=== PATIENT | female | born 1985 | race Caucasian/White ===

== ENCOUNTER 2023-07-20 09:56 | Outpatient (REF) | payer MEDICAID, SELFPAY ==
[2023-07-20 12:07] LABS: Estimated Average Glucose 126 mg/dL
[2023-07-20 12:24] LABS: Alanine Aminotransferase 22 U/L (0-31); Albumin Level 4.1 g/dL (3.5-5.0); Alkaline Phosphatase 77 U/L (39-117); Anion Gap 11 (12-20); Aspartate Amino Transferase 20 U/L (5-31); Bilirubin Total 0.2 mg/dL (0.0-1.0); Blood Urea Nitrogen 12 mg/dL (9-16); Calcium 9.1 mg/dL (8.4-10.2); Carbon Dioxide 26 mmol/L (22-29); Chloride 108 mmol/L (96-108); Cholesterol 176 mg/dL (<200); Estimated Glomerular Filt Rate > 60; Glucose Random 104 mg/dL (60-115); HDL Cholesterol 41 mg/dL (>40); LDL Cholesterol Calculated 116 mg/dL (<100); Potassium 4.1 mmol/L (3.3-5.1); Sodium 141 mmol/L (135-145); Triglycerides 96 mg/dL (<150)
[2023-07-20 12:34] LABS: Syphilis Screen Nonreactive (Nonreactive)
[2023-07-20 12:43] LABS: HBS Num1 9.47 mIU/mL (0-7.99); HBc Num1 0.14 S/CO (0.00-0.79); HBsAGNum1 0.35 S/CO (0.00-0.99); HIV AB/AG Nonreactive (Nonreactive); HIV Num 1 0.04 S/CO (0.00-0.99); Hepatitis A Antibody IgG Nonreactive (Nonreactive); Hepatitis B Core Antibody Nonreactive (Nonreactive); Hepatitis B Surface Antigen Negative (Negative); ~HepC Num1 0.07 S/CO (0.00-0.79); ~Hepatitis A Antibody IgG 0.58 S/CO (0.00-0.99); ~Hepatitis C Antibody Nonreactive (Nonreactive)
[2023-07-20 12:47] LABS: TSH reflex Free T4 1.86 uIU/mL (0.32-4.0)
[2023-07-20 12:50] LABS: Reflex LDLD? No
[2023-07-20 14:16] LABS: HBS Num2 10.21 mIU/mL (0-7.99); ~Hepatitis B Surface Antibody GRAYZONE (Nonreactive)
[2023-07-20 14:25] LABS: CT PCR NOT DETECTED (Not Detect.); NG PCR NOT DETECTED (Not Detect.)
== END 2023-07-20 09:57 | disposition home or self-care (01) ==
LOC: HO.HHCL 09:56
PROVIDERS: Visit Provider Family Medicine
DX: Z00.00 Encounter for general adult medical examination without abnormal findings (principal); R73.03 Prediabetes; E66.09 Other obesity due to excess calories
CPT/HCPCS: 0353U; 36415; 80053; 80061; 83036; 84443; 86704; 86706; 86708; 86780; 86803; 87340; 87389

== ENCOUNTER 2023-07-25 13:12 | Outpatient (REF) | payer MEDICAID, SELFPAY ==
--- NOTE | ~2023-07-25 | MM_ITS ---
EXAMINATION: MM SCREENING DIGITAL BREAST TOMOSYNTHESIS, BILATERAL CLINICAL INFORMATION: Screening. Asymptomatic. The patient is status post left breast surgery for benign disease. COMPARISON: Mammography: This is a baseline mammogram. TECHNIQUE: Digital breast tomosynthesis is performed in both the craniocaudal and mediolateral oblique views along with computer-aided detection (CAD). Synthesized 2D images are generated from the tomosynthesis. FINDINGS: The breasts are almost entirely fatty (ACR BI-RADS breast composition Category a). There are no significant masses, abnormal calcifications, or other abnormalities. MM/MM tomosynthesis screening BI IMPRESSION: No mammographic evidence of malignancy. ASSESSMENT: BI-RADS BI-RADS 1 - Negative RECOMMENDATION: Routine annual mammography screening. 1 year F/U This examination should not preclude the clinical evaluation of a suspicious palpable abnormality. This patient's information was entered into a reminder system with a target due date for their next mammogram.
== END 2023-07-25 13:13 | disposition home or self-care (01) ==
LOC: HO.MAMMO 13:12
PROVIDERS: PCP Family Medicine; Visit Provider Family Medicine
DX: Z12.31 Encounter for screening mammogram for malignant neoplasm of breast (principal)
CPT/HCPCS: 77063; 77067

== ENCOUNTER → 2023-07-25 14:00 | Outpatient (BNV) | payer MEDICAID, SELFPAY | PROVIDERS: PCP Family Medicine; Visit Provider Radiology Diagnostic Radiology | DX: Z12.31 Encounter for screening mammogram for malignant neoplasm of breast (principal) | CPT/HCPCS: 77063; 77067 ==

== ENCOUNTER 2024-02-01 13:30 | Outpatient (AMB) | payer MEDICAID, SELFPAY ==
--- NOTE | 2024-02-01 13:35 | MHC.OFFVIS ---
Vital Signs 02/01/24 13:40 Height 5 ft 1 in Weight 169 lb 8 oz BMI 32.0 Intake Visit Reasons: cyst of back Intake Note: This patient presents for cyst on the back. Pt c/o; reports black dot that looks like a pimple and she tried poping it but nothing came out, reports no antibiotics course. Rn Long Term Care Required: Yes Rn Long Term Care Language: Workers Compensation Analyst Services: Rn Long Term Care Present Rn Long Term Care Name: Linda Information Interpreted: non-clinical & clinical Accompanied by: Other Relationship Allergies No Known Allergies [No Known Allergies*] Allergy (Unverified 02/01/24 13:42) Medication List - Last Reconciled 02/01/24 by Brando Henderson MD No Known Home Meds HPI HPI cyst of back: Details: 38-year-old female referred for a cyst on her back. She says that she has had this lump on her back for about a year now. She denies any drainage or swelling but she says this is uncomfortable and she wants this removed. [facility] Medical History (Updated 02/01/24 @ 13:56 by Brando Henderson MD) Epidermal inclusion cyst Surgical History No pertinent past surgical history Social History Alcohol intake: never Patient Tobacco Use Status: Never used Tobacco Review of Systems Const Denies chills and Denies fever(s) Card Denies chest pain, Denies dyspnea and Denies dyspnea on exertion Resp Denies cough, Denies dyspnea and Denies dyspnea on exertion GI Denies hematochezia and Denies change in bowel habits Denies hematuria Musc Denies back pain and Denies limited range of motion Neuro Denies focal weakness and Denies convulsions Psych Denies depression and Denies mood swings Physical Exam Vital Signs: BMI result Body Mass Index 32.0 Const General: comfortable and no acute distress Orientation/consciousness: patient oriented x3 Neck Neck: Yes no lymphadenopathy Resp Auscultation: clear to auscultation bilaterally Cardio Rhythm: regular rhythm GI Palpation (GI): Soft to palpation, nontender and no guarding Back/Spine/Pelvis Other: On the upper back is note of a well-defined cystic induration consistent with an epidermal inclusion cyst, about 1.3 cm in diameter, not inflamed Neuro General: patient oriented x3 Assessment & Plan Assessment & Plan (1) Epidermal inclusion cyst: Code(s): L72.0 - Epidermal cyst Category: Medical Plan: She wants this removed. I explained the technique of excision under local anesthesia. I reviewed the risks including but not limited to bleeding and infections, as well as the benefits and alternatives. She wants to proceed This will be done on her next visit in the office. Coding Level of Care Code New Pt Level 3 (47763) Diagnoses Epidermal inclusion cyst L72.0
[2024-02-01 13:40] VITALS: BMI 32.0
== END 2024-02-01 13:57 | disposition home or self-care (01) ==
PROVIDERS: PCP Family Medicine; Visit Provider Surgery
DX: L72.0 Epidermal cyst (principal)
CPT/HCPCS: 99203

== ENCOUNTER → 2024-02-01 13:30 | Outpatient (BNVA) | payer MEDICAID, SELFPAY | PROVIDERS: PCP Family Medicine; Visit Provider Surgery | DX: L72.0 Epidermal cyst (principal) | CPT/HCPCS: 99202 ==

== ENCOUNTER 2024-02-15 12:48 | Outpatient (AMB) | payer MEDICAID, SELFPAY ==
[2024-02-15 12:55] VITALS: BMI 32.0
--- NOTE | 2024-02-15 12:55 | MHC.OFFVIS ---
Vital Signs 02/15/24 12:55 Height 5 ft 1 in Weight 169 lb 8.003 oz BMI 32.0 Intake Visit Reasons: EXC cyst of back Intake Note: Office procedure: excision of back cyst. Clinical Nurse Leader Required: Yes Clinical Nurse Leader Language: Piecer Up Services: Clinical Nurse Leader Present (Bharti) Information Interpreted: non-clinical & clinical Accompanied by: Spouse Allergies No Known Allergies [No Known Allergies*] Allergy (Unverified 02/15/24 12:56) HPI HPI EXC cyst of back: Details: She is here for excision of a cyst from the back. [facility] Medical History Epidermal inclusion cyst Surgical History No pertinent past surgical history Social History Alcohol intake: never Patient Tobacco Use Status: Never used Tobacco Physical Exam Vital Signs: BMI result Body Mass Index 32.0 Office Procedures Excision Details: She was in prone position. The area of the cyst on the mid back was prepped and draped. Lidocaine 1% was used for local anesthesia. I made an elliptical incision on the skin overlying this cyst with a blade 15. This carried down through the full-thickness of the skin and subcutaneous fat to excise the entire cyst with the capsule intact. This is measured about 1.3 cm in diameter. I closed the incision with full-thickness nylon 3-0 simple interrupted sutures. Dressings were applied. The procedure was completed. She tolerated procedure well. There was no complication. There was minimal blood loss. 30528-ckilm/arms/legs 1.1-2cm Procedure code (CPT) selection complete Assessment & Plan Assessment & Plan (1) Epidermal inclusion cyst: Code(s): L72.0 - Epidermal cyst Category: Medical Plan: She was given wound care instructions. I will see her in the office in about 2 weeks for removal sutures. Coding Level of Care Code Procedure Only Diagnoses Epidermal inclusion cyst L72.0 CPT Codes Trunk/Arms/Legs - CPT: 06845-kxhmp/arms/legs 1.1-2cm ([id number])
== END 2024-02-15 13:18 | disposition home or self-care (01) ==
PROVIDERS: PCP Family Medicine; Visit Provider Surgery
DX: L72.0 Epidermal cyst (principal)
CPT/HCPCS: 11402

== ENCOUNTER 2024-02-15 12:48 | Outpatient (REF) | payer MEDICAID, SELFPAY | END 2024-02-15 12:49 | disposition home or self-care (01) | LOC: HO.LNP 12:48 | PROVIDERS: PCP Family Medicine; Visit Provider Surgery | DX: L72.0 Epidermal cyst (principal) | CPT/HCPCS: 11402; 88304 ==

== ENCOUNTER 2024-02-29 12:46 | Outpatient (AMB) | payer MEDICAID, SELFPAY ==
--- NOTE | 2024-02-29 12:57 | MHC.OFFVIS ---
Vital Signs 02/29/24 13:06 Height 5 ft 1 in Weight 169 lb 8.003 oz BMI 32.0 Intake Visit Reasons: suture removal, s/p excision back cyst Intake Note: This patient presents for post-op assessment status post excision epidermal inclusion cyst mid-back. Pt c/o; no concerns. Claims Adjuster Required: Yes Claims Adjuster Language: [employer] Intern Services: Claims Adjuster Present Claims Adjuster Name: NaELODIA Information Interpreted: non-clinical & clinical Accompanied by: Spouse Allergies No Known Allergies [No Known Allergies*] Allergy (Unverified 02/29/24 12:57) HPI HPI suture removal, s/p excision back cyst: Details: She underwent excision of a cyst from the back under local anesthesia last 02/15/2024. She tolerated procedure. She has complaints at this time. [facility] Medical History Epidermal inclusion cyst Surgical History History of excision of epidermal inclusion cyst (~02/01/24) Social History Alcohol intake: never Patient Tobacco Use Status: Never used Tobacco Review of Systems Const Denies chills and Denies fever(s) Physical Exam Vital Signs: BMI result Body Mass Index 32.0 Const General: comfortable and no acute distress Resp Effort & Inspection: normal respiratory effort Back/Spine/Pelvis Other: Excision site is well healed, not infected Assessment & Plan Assessment & Plan (1) Epidermal inclusion cyst: Code(s): L72.0 - Epidermal cyst Category: Medical Plan: Status post excision. The path report confirms the diagnosis. The incision site is well healed. Her sutures were removed. She can follow up on a p.r.n. basis. Coding Level of Care Code Global (88122) Diagnoses Epidermal inclusion cyst L72.0
[2024-02-29 13:06] VITALS: BMI 32.0
--- OUTSIDE RECORDS SUMMARY | 2024-02-29 15:05 | XMS_ITS | Clinical Summary ---
Author Organization [facility] Address [address] [place] [address] Phone Care Team Providers Care Rn Clinical Documentation Specialist Name Role Phone Physician, No Pcp Primary Care Provider Unavaila ble Allergies No known active allergies Encounters Date Type Department Care Team Description 01/08/2024 1:19 PM EST - 01/08/2024 4:[address] [facility] Emergency [address] [place] [address] Jarrett Orlando MD Contusion of scalp, initial encounter (Primary Dx) Discharge Disposition: Home or Self Care from Last 3 Months Social History Tobacco Use Types Packs/Day Years Used Date Smoking Tobacco: Never Assessed Sex and Gender Information Value Date Recorded Sex Assigned at Female 01/08/2024 2:53 PM EST Gender Identity Female 01/08/2024 2:53 PM EST Sexual Orientation Straight 01/08/2024 2: 53 PM EST Job Start Date Occupation Industry Not on file Not on file Not on file Obstetrics History Last Filed Vital Signs Vital Sign Reading Time Taken Comments Blood Pressure 124/86 01/08/2024 1:20 PM EST Pulse 107 01/08/2024 1:20 PM EST Temperature 36.7 ??C (98.1 ??F) 01/08/2024 1:20 PM ES T Respiratory Rate 16 01/08/2024 1:20 PM EST Oxygen Saturation 100% 01/08/2024 1:20 PM EST Inhaled Oxygen Concentration - - Weight 78.5 kg (173 lb) 01/08/2024 1:20 PM EST Height 154.9 cm (5' 1 ) 01/08/2024 1:20 PM EST Body Mass Index 32.69 01/08/2024 1:20 PM EST Plan of Treatment Health Maintenance Due Date Last Done Comments Breast Cancer Screening 1983 Hepatitis B Vaccines (1 of 3 - 19+ 3-dose series) 06/18/2002 Cervical Cancer Screening: P ap Smear 06/18/2004 COVID-19 Vaccine (2023-2 5 season) 2023 Influenza Vaccine (#1) 2023 11/06/2020 Cholesterol Screening (Lipid Panel) 01/08/2024 Depression Screening 01/08/2024 Hypertension/CHF/CAD Annual BMP Blood Test 01/08/2024 Social Influencers of Health Screening 01/08/2024 DTaP,Tdap,and Td Vaccines (3 - Td or Tdap) 03/12/2029 03/12/2019, 08/25/2016 HIV Screening Completed 07/20/2023 Hepatitis C Screening Completed 07/20/2023 HIB Vaccines Aged Out No longer eligi ble based on patient's age to complete this topic HPV Vaccines Aged Out No longer eligi ble based on patient's age to complete this topic Hepatitis A Vaccines Aged Out No long er eligible based on patient's age to complete this topic IPV Vaccines Aged Out No longer eligi ble based on patient's age to complete this topic MMR Vaccines Aged Out No longer eligi ble based on patient's age to complete this topic Meningococcal ACWY Vaccine Aged Out N o longer eligible based on patient's age to complete this topic Pneumococcal Vaccine: Pediatrics (0 to 5 Years) and At-Risk Patients (6 to 64 Years) Aged Out No longer eligible b ased on patient's age to complete this topic RSV Immunization Patients Under 20 months Aged Out No longer eligible b ased on patient's age to complete this topic Varicella Vaccines Aged Out No longer eligible based on patient's age to complete this topic Care Teams Rn Clinical Documentation Specialist Relationship Specialty Start Date End Date Physician, No Pcp PCP - General 01/08/24
== END 2024-02-29 14:12 | disposition home or self-care (01) ==
LOC: HO.HGS 12:46
PROVIDERS: PCP Family Medicine; Visit Provider Surgery
DX: L72.0 Epidermal cyst (principal)
CPT/HCPCS: 99024

== ENCOUNTER → 2024-02-29 12:46 | Outpatient (BNVA) | payer MEDICAID, SELFPAY | PROVIDERS: PCP Family Medicine; Visit Provider Surgery | DX: Z09 Encounter for follow-up examination after completed treatment for conditions other than malignant neoplasm (principal); Z87.2 Personal history of diseases of the skin and subcutaneous tissue | CPT/HCPCS: 99212 ==

== ENCOUNTER 2024-06-24 10:57 | Outpatient (REF) | payer MEDICAID, SELFPAY ==
--- OUTSIDE RECORDS SUMMARY | 2024-06-24 11:41 | XMS_ITS | Encounter Summary ---
Author Organization [employer] Address [address] [place] [address] Care Team Providers Care Firer Glost Kiln Name Role Phone Marybeth Reddy MD Primary Care Provider [phone] Encounter Details Date Type Department Care Team (Latest Contact Info) Description 06/24/2024 Travel Social History Tobacco Use Types Packs/Day Years Used Date Smoking Tobacco: Never Passive Smoke Exposure: Never Smokeless Tobacco: Never Depression Answer Date Recorded Patient Health Questionnaire-9 Score 3 01/18/2024 Patient Health Questionnaire-9 Score 3 01/18/2024 Last PHQ-9: Questionnaire Data Not on file 1 03/20/2023 Housing Stability Answer Date Recorded What is your housing situation today? I have nate hayden 07/10/[address] you li ve. Do you have problems with any of the following? None of the above 07/10/2023 Food Insecurity Answer Date Recorded Within the past 12 months, y ou worried that your food would run out before you got money to buy more: Never True 06/24/2024 Within the past 12 months,th e food you bought just didn't last and you didn't have enough money to get more: Never True Transportation Answer Date Recorded In the past 12 months, has l ack of transportation kept you from medical appts, meetings, work or from getting things needed for daily living? No 07/10/2023 Utilities Answer Date Recorded In the past 12 months, has t he electric, gas, oil or water company threatened to shut off services in your home? No 07/10/2023 Depression Answer Date Recorded Patient Health Questionnaire-2 Score 1 01/18/2024 Internet Access Answer Date Recorded Internet Access Q1 Yes 06/24/2024 Internet Access Q2 Not on file 06/24/2024 Comments Unknown Sex and Gender Information Value Date Recorded Sex Assigned at Female 12/06/2021 10:31 AM EDT Legal Sex Female 10:31 AM EDT Gender Identity Female 12/06/2021 10:31 AM EDT Sexual Orientation Straight 11/24/2022 12 :20 PM EDT documented as of this encounter Plan of Treatment Upcoming Encounters Date Type Department Care Team (Late st Contact Info) Description 06/27/2024 1:30 PM EDT Office Visit [facility] [address] [place] [address] Miley Osorio, OD [address] [place] [address] documented as of this encounter Visit Diagnoses Not on filedocumented in this encounter Additional Health Concerns Assessment Noted Time PHQ-9 Depression Total Score: 3 01/18/20 10:03 AM EST documented as of this encounter Care Teams Firer Glost Kiln Relationship Specialty Start Date End Date Marybeth Reddy MD [address] [place] [address] PCP - General Family Medicine 07/20/23 documented as of this encounter
--- OUTSIDE RECORDS SUMMARY | 2024-06-24 11:41 | XMS_ITS | Clinical Summary ---
Author Organization [facility] Address [address] [place] [address] Phone Care Team Providers Care Patient Support Representative Name Role Phone Physician, No Pcp Primary Care Provider Unavaila ble Allergies No known active allergies Social History Tobacco Use Types Packs/Day Years Used Date Smoking Tobacco: Never Assessed Comments Unknown Sex and Gender Information Value Date Recorded Sex Assigned at Female 01/08/2024 2:53 PM EST Legal Sex Female 1:10 PM EST Gender Identity Female 01/08/2024 2:53 PM EST Sexual Orientation Straight 01/08/2024 2: 53 PM EST Obstetrics History Last Filed Vital Signs Vital [...] 06/18/2004 COVID-19 Vaccine (2023-2 5 season) 2023 Cholesterol Screening (Lipid Panel) 01/08/2024 Depression Screening 01/08/2024 Hypertension/CHF/CAD Annual BMP Blood Test 01/08/2024 Social Influencers of Health Screening 01/08/2024 Influenza Vaccine (Season Ended) 2024 11/06/2020 DTaP,Tdap,and Td Vaccines (3 - Td or [...] patient's age to complete this topic Meningococcal B Vaccine Aged Out No l onger eligible based on patient's age to complete [...] on patient's age to complete this topic Insurance MEDICAID - [place] Care Teams Patient Support Representative Relationship Specialty Start Date End Date Physician, No Pcp PCP - General 01/08/24
--- OUTSIDE RECORDS SUMMARY | 2024-06-24 11:42 | XMS_ITS | Encounter Summary ---
Author Organization [employer] Address [address] [place] [address] Care Team Providers Care Technical Recruiter Name Role Phone Marybeth Reddy MD Primary Care Provider [phone] Reason for Visit * Reason Comments Gynecologic Exam Encounter Details Date Type Department Care Team (Latest Contact Info) Description 06/24/2024 10:30 AM EDT Procedure Visit [facility] [address] [place], [place] [phone] Rachelle Mina CNM [address] [place], [place] [phone] Cervical cancer screening (Primary Dx); Amenorrhea Social History Tobacco Use Types Packs/Day Years [...] Q2 Not on file 06/24/2024 Comments Unknown Intention Date Recorded No desire to become (finding) 0 06/24/2024 Sex and Gender Information Value Date Recorded Sex Assigned at Female 12/06/2021 10:31 AM EDT Legal Sex Female 10:31 AM EDT Gender Identity Female 12/06/2021 10:31 AM EDT Sexual Orientation Straight 11/24/2022 12 :20 PM EDT documented as of this encounter Last Filed Vital Signs Vital Sign Reading Time Taken Comments Blood Pressure 144/100 06/24/2024 10:18 AM EDT no chest pain, palpitations, or SOB Pulse 80 06/24/2024 10:18 AM EDT Temperature - - Respiratory Rate 20 06/24/2024 10:1 8 AM EDT Oxygen Saturation 100% 06/24/2024 10: 18 AM EDT Inhaled Oxygen Concentration - - Weight 73.9 kg (163 lb) 06/24/2024 10:1 8 AM EDT Height 154.9 cm (5' 1 ) 06/24/2024 10:1 8 AM EDT Body Mass Index 30.8 06/24/2024 10:18 AM EDT documented in this encounter Progress Notes * Rachelle Mina CNM - 06/24/2024 10:30 AM EDT Subjective Patient ID: Luann Ramires is a 39 y.o. female who presents for pap Mammogram BIRADS 1, cat a 07/2023. HPV neg 2016, unable to view cytology results. Denies abnormal pap. 1 AMAB partner x 10y, no safetyconcerns. Not planning . Notes prolonged periods of amenorrhea for at least the past year. LMP 02/2024, previous was several months before that. Bleeds x 7d, 3 pads/day. No heavy flow or bothersome cramping. Doesn't think sheis . Menarche at 7, did have regular cycles in younger years. Unsure of age of mother's menopause. Denies vasomotor symptoms. Denies incontinence symptoms. BP elevated today, asymptomatic. Taking amlodipine as prescribed. Review of Systems Eyes: Negative for visual disturbance. Respiratory: Negative for shortness of breath. Cardiovascular: Negative for chest pain. Gastrointestinal: Negative for nausea and vomiting. Endocrine: Negative for cold intolerance and heat intolerance. Genitourinary: Positive for menstrual problem. Negative for dyspareunia, dysuria, frequency, genital sores, hematuria, pelvic pain, urgency, vaginal bleeding, vaginal discharge and vaginal pain. No abnormal pap, no abnormal bleeding, no breast pain, no breast mass, no nipple discharge Neurological: Negative for dizziness and headaches. Objective BP (!) 144/100 (BP Location: Left arm, Patient Position: Sitting, BP Cuff Size: Adult) Comment: no chest pain, palpitations, or SOB Pulse 80 Resp 20 Ht 5' 1 (1.549 m) Wt 163 lb (73.9 kg) SpO2 100% BMI 30.80 kg/m?? Physical Exam Constitutional: Appearance: Normal appearance. Chest: Breasts: Right: Normal. No swelling, bleeding, inverted nipple, mass, nipple discharge, skin change or tenderness. Left: Normal. No swelling, bleeding, inverted nipple, mass, nipple discharge, skin change or tenderness. Genitourinary: General: Normal vulva. Labia: Right: No rash, tenderness, lesion or injury. Left: No rash, tenderness, lesion or injury. Vagina: Normal. No signs of injury and foreign body. No vaginal discharge, erythema, tenderness, bleeding or lesions. Cervix: Erythema present. No cervical motion tenderness, discharge, friability, lesion, cervical bleeding or eversion. Uterus: Normal. Not enlarged and not tender. Adnexa: Right adnexa normal and left adnexa normal. Right: No mass, tenderness or fullness. Left: No mass, tenderness or fullness. Comments: Fair tone with Kegels, no prolapse with Valsalva Lymphadenopathy: Upper Body: Right upper body: No supraclavicular or axillary adenopathy. Left upper body: No supraclavicular or axillary adenopathy. Neurological: Mental Status: She is alert. Psychiatric: Mood and Affect: Mood normal. Behavior: Behavior normal. Assessment/Plan Diagnoses and all orders for this visit: Cervical cancer screening - Pap Smear Cotest today. Repeat 5 years if normal/HPV negative. Will contact with results and plan. Amenorrhea - TSH W/Reflex to FT4; Future - Prolactin; Future - hCG, Total, Quantitative; Future - FSH; Future - Estradiol; Future - Testosterone, Total, males (Adult), IA; Future Labs as above. Will order ultrasound/offer Provera challenge as indicated by results. If prolactin elevated, will repeat fasting as CBE done prior to labs. documented in this encounter Plan of Treatment Upcoming Encounters Date Type Department Care Team (Late st Contact Info) Description 06/27/2024 1:30 PM EDT Office Visit [facility] [address] [place], [place] [phone] Devon, Miley, OD [address] [place] [address] Scheduled Orders Name Type Priority Associated Diagnoses Order Schedule Pap Smear Pathology and Cytology Routine Cervical cancer screening Ordered: 06/24/2024 TSH W/Reflex to FT4 Lab Routine Amenorrhea Expected: 06/24/2024 (Approximate), Expires: 06/24/2025 Prolactin Lab Routine Amenorrhea Expected: 06/24/2024 (Approximate), Expires: 06/24/2025 hCG, Total, Quantitative Lab Routine Amenorrhea Expected: 06/24/2024 (Approximate), Expires: 06/24/2025 FSH Lab Routine Amenorrhea Expected: 06/24/2024, Expires: 06/24/2025 Estradiol Lab Routine Amenorrhea Expected: 06/24/2024 (Approximate), Expires: 06/24/2025 Testosterone, Total, males (Adult), IA Lab Routine Amenorrhea Expected: 06/24/2024 (Approximate), Expires: 06/24/2025 documented as of this encounter Visit Diagnoses Diagnosis Cervical cancer screening- Primary Screening for malignant neoplasm of the cervix Amenorrhea Absence of menstruation documented in this encounter Additional Health Concerns Assessment Noted Time PHQ-9 Depression Total Score: 3 01/18/20 24 10:03 AM EST documented as of this encounter Care Teams Technical Recruiter Relationship Specialty Start Date End Date Marybeth Reddy MD [address] [place] [address] PCP - General Family Medicine 07/20/23 documented as of this encounter
--- OUTSIDE RECORDS SUMMARY | 2024-06-24 11:42 | XMS_ITS | Clinical Summary ---
Author Organization [employer] Address [address] [facility] 7[address] [place] [address] Care Team Providers Care Commutator V Ring Assembler Name Role Phone Marybeth Reddy MD Primary Care Provider [phone] Allergies No known active allergies Medications acetaminophen (Tylenol) 500 MG tablet Take 2 tablets (1,000 mg) by mouth every 6 (six) hours if needed for moderate pain or fever. 40 tablet 4 Active pantoprazole (ProtoNix) 40 MG EC tablet Take 1 tablet (40 mg) by mouth before breakfast. 90 tablet 3 4 Active hydrocortisone 2.5 % cream Apply to affected area once daily as needed. Apply thin layer 28 g 3 4 Active dextran 70-hypromellose (artificial tears) 0.1-0.3 % ophthalmic solution Administer 1 drop into both eyes if needed in the morning, at noon, and at bedtime for dry eyes. 15 mL 1 4 01/16/20 25 Active amLODIPine (Norvasc) 10 MG tablet TAKE 1 TABLET EVERY DAY 90 tablet 5 Active Active Problems Problem Noted Date Diagnosed Date Dry eye 01/17/2024 Amenorrhea 01/16/2024 Assessment & Plan (01/16/2024 10:42 AM EST): Reports having her period for 6 moths and then not having it for a long time. This has been happening for years. - will schedule for PAP smear Pain in finger of right hand 01/16/2024 Assessment & Plan (01/16/2024 11:00 AM EST): Pain to 5th finger, likely arthritis. No injury. - recommended OTC analgesics. - consider x-ray if worsening symptoms. Cyst of skin 01/16/2024 Assessment & Plan (01/16/2024 10:58 AM EST): - referred to general surgery 01/16/24 Other conjunctivitis 01/16/2024 Assessment & Plan (01/16/2024 11:01 AM EST): Likely allergic. - continue lubricant. - prescribed Cromolyn eye drops. - referred to [facility] 01/16/24 Tinnitus of left ear 07/20/2023 Assessment & Plan (07/20/2023 9:54 AM EDT): -no sign of infection -will refer to ENT Generalized abdominal pain 07/20/2023 Eczema 11/24/2022 Assessment & Plan (07/21/2023 10:11 AM EDT): - avoid scratching - use hypoallergenic and unscented skin care / laundry / cleaning product - liberal moisturization with emollient (such as Vaseline) - judicious use of topical steroid Assessment & Plan (11/24/2022 11:12 PM EDT): Possible small area of impetigo in umbilical area w no drainage noted -mupiricin TID x 10 days -alarms igns symptoms tor RTC in 1 week if not improving Gastroesophageal reflux disease without esophagi tis 08/13/2019 11/24/2022 Overview (11/24/2022): Last Assessment & Plan: Continue omeprazole Assessment & Plan (01/16/2024 6:19 AM EST): -continue Pantoprazole as prescribed -consider checking H. Pylori if symptoms worsen. -consider referring to GI for EGD if symptoms worsen. Assessment & Plan (07/20/2023 9:53 AM EDT): -continue Pantoprazole as prescribed -consider taking H. Pylori if symptoms worsen. -consider referring to GI for EGD if symptoms worsen. Essential hypertension 11/20/2018 Overview (11/24/2022): Dx - pt noted elevated BP at home Has BP cuff at home Last Assessment & Plan: BP lo/7 118/90 , P 93 today AM 02/6119/93 AM, 133/90 PM 02/10 132/94 AM, 120/93. Current medications: amlodipine 5mg. Plan: Increase amlodipine from 5 to 10mg. Continue home monitoring. Call in 1-2 weeks with readings. Assessment & Plan (01/17/2024 12:23 PM EST): - Goal BP < 130/80 per ACC / AHA. BP sub optimal today 01/16/24 - continue Amlodipine as prescribed - encouraged to continue healthy lifestyle Assessment & Plan (07/20/2023 9:50 AM EDT): -continue Amlodipine as prescribed -encouraged to continue healthy lifestyle. Assessment & Plan (11/24/2022 11:13 PM EDT): BP 140/90 -to resume amlodipine today -request for [employer] apt to start care -advised to monitor BP at home Migraine 11/20/2018 11/24/2022 Overview (11/24/2022): Started on amitriptyline in 2017 Prediabetes 09/18/2018 11/24/2022 Overview (11/24/2022): Last Assessment & Plan: Recheck A1c in August Assessment & Plan (01/16/2024 10:40 AM EST): - A1c 6.2 in July 2023 - A1c 6.0 01/16/2024 -continue lifestyle modification Assessment & Plan (07/20/2023 9:53 AM EDT): -A1c 6.2 today -continue lifestyle modification Anxiety 09/04/2018 11/24/2022 Overview (11/24/2022): Last Assessment & Plan: Referral to [facility]. Discussed that it will take some follow-up to be able to communicate helpfully about any disability caused by her medical conditions. Obesity due to excess calori es, unspecified obesity severity 09/04/2018 11/24/2022 Overview (11/24/2022): Last Assessment & Plan: A1c Resolved Problems Problem Noted Date Diagnosed Date Resolved Date Encounter for screening mamm ogram for malignant neoplasm of breast 07/20/2023 07/21/2023 Encounters Date Type Department Care Team Description 06/24/2024 10:30 AM EDT Procedure Visit [facility] [address] [place] [phone] Rachelle Mina CNM Cervical cancer screening (Primary Dx); Amenorrhea 06/24/2024 Travel 06/24/2024 Refill [facility] [address] [place] [phone] Marybeth Reddy MD 06/21/[address] [address] Rachelle Mina CNM CHART PREP 03/28/[address] [address] Marybeth Reddy MD Nurse Triage from Last 3 Months Immunizations Immunization Administration Dates Next Due Influenza injectable quadrivalent preservative f ree 11/06/2020 Tdap 03/12/2019,08/25/2016 Family History Medical History Relation Name Comments Breast cancer Neg Hx Colon cancer Neg Hx Ovarian cancer Neg Hx Social History Tobacco Use Types Packs/Day Years Used Date Smoking Tobacco: Never Passive Smoke Exposure: Never Smokeless Tobacco: Never Tobacco Cessation:Counseling Given: Not Answered Depression Answer Date Recorded Patient Health Questionnaire-9 [...] Orientation Straight 11/24/2022 12 :20 PM EDT Last Filed Vital Signs Vital Sign Reading Time Taken Comments Blood Pressure 144/100 06/24/2024 10:18 AM EDT no chest pain, palpitations, or SOB Pulse 80 06/24/2024 10:18 AM EDT Temperature 35.8 ??C (96.4 ??F) 01/16/2024 1 0:55 AM EST Respiratory Rate 20 06/24/2024 10:1 8 AM EDT Oxygen Saturation 100% 06/24/2024 10: 18 AM EDT Inhaled Oxygen Concentration - - Weight 73.9 kg (163 lb) 06/24/2024 10:1 8 AM EDT Height 154.9 cm (5' 1 ) 06/24/2024 10:1 8 AM EDT Body Mass Index 30.8 06/24/2024 10:18 AM EDT Plan of Treatment Upcoming Encounters Date Type Department Care Team (Late st Contact Info) Description 06/27/2024 1:30 PM EDT Office Visit [facility] [address] [place] [address] Miley Osorio, OD [address] [place], [place] [phone] Health Maintenance Due Date Last Done Comments Hepatitis B Vaccines (1 of 3 - 19+ 3-dose series) 06/18/2002 Pap Smear 06/18/2004 Cervical Cancer Screening 06/10/2021 HPV/Cotest 06/10/2021 06/10/2016, 05/03/2016 COVID-19 Vaccine ( season) 2023 03/08/2021, 07/24/2020, 06/22/2020 Influenza Vaccine (#1) 2023 11/06/2020 Diabetes: Hemoglobin A1C 01/15/2025 024, 07/20/2023, 07/20/2023, Additional history exists Tobacco Screening 01/15/2025 01/16/2024 Depression Screening 01/17/2025 01/18/2024, 01/18/20 24 Alcohol/Substance Use Screening 06/24/2025 06/24/2024 Disability Screening 06/24/2025 06/24/2024 Family Planning (PISQ) 06/24/2025 06/24/2024 SDOH Screening 06/24/2025 06/24/2024 Mammogram 07/24/2025 07/25/2023 Lipid Panel 07/19/2028 07/20/2023 DTaP/Tdap/Td Vaccines (3 - Td or Tdap) 03/12/2029 03/12/2019, 08/25/2016 Zoster Vaccines (1 of 2) 06/18/2033 RSV Patients and Patients Aged 60 years or older (1 - 1-dose 75+ series) 06/18/2058 HIV Screening Completed 07/20/2023 Hepatitis C Screening [...] patient's age to complete this topic Meningococcal Vaccine Aged Out No simone israel eligible based on patient's age to complete this topic Pneumococcal Vaccine: Pediatrics (0 to 5 Years) and At-Risk Patients (6 to 49) Years) Aged Out No longer eligible based on patient's age to complete this topic RSV under 20 months Aged Out No longe r eligible based on patient's age to complete this topic Rotavirus Vaccines Aged Out No longer eligible based on patient's age to complete this topic Procedures Procedure Name Priority Date/Time Associated Diagnosis Comments POCT GLYCOSYLATED HEMOGLOBIN (HGB A1C) Routine 01/16/2024 10:37 AM EST Prediabetes BI MAMMOGRAM SCREENING TOMOSYNTHESIS BILATERAL Routine 07/25/2023 1:31 PM EDT Breast cancer screening by mammogram HEPATITIS C AB W/REFL TO HCV RNA, QN, PCR Routine 07/20/2023 9:59 AM EDT Routine general medical examination at a health care facility HIV 1/2 ANTIGEN/ANTIBODY, FOURTH GENERATION W/RFL Routine 07/20/2023 9:59 AM EDT Routine general medical examination at a health care facility LIPID PANEL WITH REFLEX TO DIRECT LDL Routine 07/20/2023 9:59 AM EDT Prediabetes ZZZ HISTORICAL HPV MRNA E6/E7 Routine 06/10/2016 3:36 PM EDT from Last 3 Months or Most Recently Relevant to Health Maintenance Results * POCT glycosylated hemoglobin (Hgb A1c) (01/16/2024 10:37 AM EST) Hemoglobin A1C 6.0 4.0 - 6.0 % QC Media Lot # [id number] Lot# Expiration Date [id number] Blood Capillary blood specimen / Unknown 01/16/2024 10:37 AM EST us Marybeth Reddy MD POINT OF CARE TEST ENTER/EDIT OR DERABLES Final Result * BI Mammogram Screening Tomosynthesis Bilateral (07/25/2023 1:31 PM EDT) Anatomical Region Laterality Modality Breast Bilateral Mammography 07/25/2023 1:31 PM EDT Narrative 08/24/2023 3:16 PM EDT ? [facility] ? [address] ?[place] [address] ? Mammography Report ? Signed ? Patient: Luann Zeng ?MR#: [id number] ?? [id number] ? : 1985 ?Acct:[id number] ? Age/Sex: 38 / F ?ADM Date: 07/25/23 ? Loc: HO.MAMMO ? Attending Dr: Marybeth Reddy MD ? Ordering Physician: Marybeth Reddy MD ?Results: 1Negative ? Date of Service: 07/25/23 ?Follow Up: 1 Year From Orig ?? inal Mammogram ? Procedure(s): MM tomosynthesis screening BI ?? Accession Number(s): [id number] ? cc: Marybeth Reddy MD ? EXAMINATION: ?? MM SCREENING DIGITAL BREAST TOMOSYNTHESIS, BILATERAL ? CLINICAL INFORMATION: ? Screening. Asymptomatic. ? The patient is status post left breast surgery for benign disease. ? COMPARISON: ?? Mammography: This is a baseline mammogram. ? TECHNIQUE: ?? Digital breast tomosynthesis is performed in both the craniocaudal and ?? mediolateral oblique views along with computer-aided detection (CAD). ?? Synthesized 2D images are generated from the tomosynthesis. ? FINDINGS: ?? The breasts are almost entirely fatty (ACR BI-RADS breast composition ?? Category a). ? There are no significant masses, abnormal calcifications, or other ?? abnormalities. ? MM/MM tomosynthesis screening BI ?? IMPRESSION: ?? No mammographic evidence of malignancy. ? ASSESSMENT: ? BI-RADS BI-RADS 1 - Negative ? RECOMMENDATION: ?? Routine annual mammography screening. ? 1 year F/U ? This examination should not preclude the clinical evaluation of a ?? suspicious palpable abnormality. ? This patient's information was entered into a reminder system with a ?? target due date for their next mammogram. ? Dictated By: ?Maureen Solomon MD ? Signed By: ?<Electronically signed by Maureen Solomon MD in OV> ? 08/24/23 1513 ? DD/ 1331 ? TD/TT: ? Blindmaker: ? Procedure Note Chon, Image - 08/24/2023 [facility] [address] [place] [address] [place] [address] Mammography Report Signed Patient: Luann ZengMR#: [id number] : 1985Acct:[id number] Age/Sex: 38 / FADM Date: 07/25/23 Loc: MADDI Attending Dr: Marybeth Reddy MD Ordering Physician: Marybeth Reddyesults: 1Negative Date of Service: 07/25/23Follow Up: 1 Year From Orig inal Mammogram Procedure(s): MM tomosynthesis screening BI Accession Number(s): [id number] cc: Marybeth Reddy MD EXAMINATION: MM SCREENING DIGITAL BREAST TOMOSYNTHESIS, BILATERAL CLINICAL INFORMATION: Screening. Asymptomatic. The patient is status post left breast surgery for benign disease. COMPARISON: Mammography: This is a baseline mammogram. TECHNIQUE: Digital breast tomosynthesis is performed in both the craniocaudal and mediolateral oblique views along with computer-aided detection (CAD). Synthesized 2D images are generated from the tomosynthesis. FINDINGS: The breasts are almost entirely fatty (ACR BI-RADS breast composition Category a). There are no significant masses, abnormal calcifications, or other abnormalities. MM/MM tomosynthesis screening BI IMPRESSION: No mammographic evidence of malignancy. ASSESSMENT: BI-RADS BI-RADS 1 - Negative RECOMMENDATION: Routine annual mammography screening. 1 year F/U This examination should not preclude the clinical evaluation of a suspicious palpable abnormality. This patient's information was entered into a reminder system with a target due date for their next mammogram. Dictated By: Maureen Solomon MD Signed By: <Electronically signed by Maureen Solomon MD in OV> 08/24/23 1513 DD/ 1331 TD/TT: Blindmaker: Marybeth Reddy MD IMG BI PROCEDURES Final Result * (ABNORMAL) Lipid Panel with Reflex to Direct LDL (07/20/2023 9:59 AM EDT) Triglycerides 96 <150 mg/dL [facility] Comment:Desirable Triglyceri de: less than 150 mg/dLBorderline High Triglyceride 150-199 mg/dLHigh Triglyceride: 200-499 mg/dLVery High Triglyceride: greater than or equal to 5OO mg/dL Cholesterol 176 <200 mg/dL [facility] Comment:Desirable Cholestero l: less than 200 mg/dLBorderline High Cholesterol: 200-239 mg/dLHigh Cholesterol: greater than 239 mg/dL LDL Cholesterol Calculated 116(H) <100 mg/dL [facility] Comment:Desirable LDL: less than 100 mg/dLNear Optimal/Above Optimal LDL: 110- 129 mg/dLBorderline High LDL: 130-159 mg/dLHigh LDL: 160-189 mg/dLVery High LDL: greater than or equal to 190 mg/dL HDL Cholesterol 41 >40 mg/dL [facility] Comment:Desirable HDL: great er than 40 mg/dL Note: This HDL assay may give artificially low results in patients with liver disease. Blood 07/20/2023 9:59 AM EDT 07/20/2023 11:49 AM EDT Marybeth Reddy MD LAB BLOOD ORDERABLES Final Resul t Performing Organization Address [facility] Co de Phone Number [facility] [address] [place] [phone] * Hepatitis C Antibody with Reflex to HCV, RNA, Quantitative, Real-Time PCR (07/20/2023 9:59 AM EDT) Hepatitis C Antibody Nonreactive Nonreactive [facility] Comment:Antibodies to HCV no t detected; does not exclude early acuteHCV infection. Blood Venous blood specimen / Unknown 07/20/2023 9:59 AM EDT 07/20/2023 11:49 AM EDT Marybeth Reddy MD LAB BLOOD ORDERABLES Final Resul t Performing Organization Address [facility] Co de Phone Number [facility] [address] [place] [phone] * HIV-1/2 Antigen and Antibodies, Fourth Generation, with Reflexes (07/20/2023 9:59 AM EDT) HIV AB/AG Nonreactive Nonreactive [facility] Comment:HIV-1 p24 Ag and/or HIV-1/HIV-2 Ab not detected.A test result that is nonreactive does not exclude thepossibility of exposure to or infection with HIV-1 and/orHIV-2. Nonreactive results in this assay for individualswith prior exposure to HIV-1 and/or HIV-2 may be due toantigen and antibody levels that are below the limit ofdetection of this assay.The [employer] HIV Ag/Ab Combo assay result andsupplemental assay results should be interpreted inconjunction with the patient's clinical presentation,history and other laboratory results. If the results areinconsistent with clinical evidence, additional testing issuggested to confirm the result. Blood Venous blood specimen / Unknown 07/20/2023 9:59 AM EDT 07/20/2023 11:49 AM EDT Marybeth Reddy MD LAB BLOOD ORDERABLES Final Resul t Performing Organization Address [facility]/ZIP Co de Phone Number [facility] [address] [place] [phone] * HPV mRNA E6/E7 (06/10/2016 3:36 PM EDT) HPV mRNA E6/E7 Not Detected NOT DETECTED [facility] Comment: This test was performed using the APTIMA(R) HPV Assay ([employer] This assay detects E6/E7 viral messenger RNA (mRNA) from 14 high-risk HPV types (16,18,31,33,35,39,45,51, 52,56,58,59,66,68). For additional information please refer to: http://education.Trochet/faq/PYO171d3 (This link is being provided for informational/ educational purposes only.) Test Performed by [facility], [place] [facility], [address] [place] [address] Aman Espinosa M.D., Ph.D., Director of Laboratories , [place] [id number] Please note: ??Effective 10/19/2015, HPV testing will be performed using [employer]'s APTIMA test which targets mRNA. Detecting mRNA instead of DNA, as in older methods, offers significant improvements in specificity. 06/10/2016 3:36 PM EDT us Frances Provider HISTORICAL/NON ORDERABLE LABS Final Result [facility] [address] from Last 3 Months or Most Recently Relevant to Health Maintenance [place] [address] [place] [address] STANDARD Care Teams Commutator V Ring Assembler Relationship Specialty Start Date End Date Marybeth Reddy MD [address] [place] [phone] PCP - General Family Medicine 07/20/23
--- OUTSIDE RECORDS SUMMARY | 2024-06-24 11:42 | XMS_ITS | Encounter Summary ---
Author Organization [employer] Address [address] [facility] [address]t [place] [address] Care Team Providers Care Atm Servicer Name Role Phone Marybeth Reddy MD Primary Care Provider [phone] Reason for Visit * Reason Comments Med Refill Encounter Details Date Type Department Care Team (Late st Contact Info) Description 06/24/2024 Refill [facility] [address] [place], [place] [phone] Marybeth Reddy MD [address] [place], [place] [phone] Social History Tobacco Use Types Packs/Day Years [...] Description 06/27/2024 1:30 PM EDT Office Visit [facility] [address] [place], [place] [phone] Devon, Miley, OD [address] [place] [address] documented as of this encounter Visit Diagnoses Not on filedocumented in this encounter Additional Health Concerns Assessment Noted Time PHQ-9 Depression Total Score: 3 01/18/20 24 10:03 AM EST documented as of this encounter Care Teams Atm Servicer Relationship Specialty Start Date End Date Marybeth Reddy MD [address] [place] [address] PCP - General Family Medicine 07/20/23 documented as of this encounter
--- OUTSIDE RECORDS SUMMARY | 2024-06-24 11:42 | XMS_ITS | Encounter Summary ---
Author Organization [facility] Address [address] [facility] [address] [place] [address] Care Team Providers Care Recreational Programs Director Name Role Phone Marybeth Reddy MD Primary Care Provider [phone] Reason for Visit * Reason Onset Date Comments New Patient 11/29/2022 Encounter Details Date Type Department Care Team (Late st Contact Info) Description 11/29/2022 Telephone [facility] [address] [place], [place] [phone] Antwan Hastings MD [address] [place], [place] [phone] New Patient Social History Tobacco Use Types Packs/Day Years Used Date Smoking Tobacco: Never Passive Smoke Exposure: Never Smokeless Tobacco: Never Comments Unknown Sex and Gender Information Value Date Recorded Sex Assigned at Female 12/06/2021 10:31 AM EDT Legal Sex Female 10:31 AM EDT Gender Identity Female 12/06/2021 10:31 AM EDT Sexual Orientation Straight 11/24/2022 12 :20 PM EDT documented as of this encounter Miscellaneous Notes * Telephone Encounter - Abram Rubin - 11/29/2022 4:30 PM EDT Tc to Pt , informed that we do take insurance, but must call [employer] to change location. Once done, to please call back to facility at [phone] documented in this encounter Plan of Treatment Upcoming Encounters Date Type Department Care Team (Late st Contact Info) Description 06/27/2024 1:30 PM EDT Office Visit [facility] [address] [place] [address] Miley Osorio, OD [address] [place] [address] documented as of this encounter Visit Diagnoses Not on filedocumented in this encounter Care Teams Recreational Programs Director Relationship Specialty Start Date End Date Marybeth Reddy MD [address] [place] [address] PCP - General Family Medicine 07/20/23 documented as of this encounter
--- OUTSIDE RECORDS SUMMARY | 2024-06-24 11:42 | XMS_ITS | Encounter Summary ---
Author Organization [employer] Address [address] [facility] [address] [place] [address] Care Team Providers Care Buffet Runner Name Role Phone Marybeth Reddy MD Primary Care Provider [phone] Reason for Visit * Reason Onset Date Comments CHART PREP 06/21/2024 Encounter Details Date Type Department Care Team (Late st Contact Info) Description 06/21/2024 Telephone [facility] [address] [place], [place] [phone] Rachelle Mina CNM [address] [place], [place] [phone] CHART PREP Social History Tobacco Use Types Packs/Day Years [...] before you got money to buy more: Often true 07/10/2023 Within the past 12 months,th e food you bought just didn't last and you didn't have enough money to get more: Often true 04/2023 Transportation Answer Date Recorded In the past 12 months, has l ack of transportation kept you from medical appts, meetings, work or from getting things needed for daily living? No 07/10/2023 Utilities Answer Date Recorded In the past 12 months, has t he electric, gas, oil or water [employer] threatened to shut off services in your home? No 07/10/2023 Depression Answer Date Recorded Patient Health Questionnaire-2 Score 1 01/18/2024 Comments Unknown Sex and Gender Information Value Date Recorded Sex Assigned at Female 12/06/2021 10:31 AM EDT Legal Sex Female 10:31 AM EDT Gender Identity Female 12/06/2021 10:31 AM EDT Sexual Orientation Straight 11/24/2022 12 :20 PM EDT documented as of this encounter Miscellaneous Notes * Telephone Encounter - Evans Durand [place] - 06/21/2024 11:43 AM EDT Chart Prep Labs: not applicable Images: not applicable Referrals: not applicable Vaccines due: Covid and Hep B Screenings: LMP Overdue care gaps: SDOH, Oral health screening, and Disability screen documented in this encounter Plan of Treatment Upcoming Encounters Date Type Department Care Team (Late st Contact Info) Description 06/27/2024 1:30 PM EDT Office Visit [facility] [address] [place] [address] Devon, Miley, OD [address] [place] [address] documented as of this encounter Visit Diagnoses Not on filedocumented in this encounter Additional Health Concerns Assessment Noted Time PHQ-9 Depression Total Score: 3 01/18/20 24 10:03 AM EST documented as of this encounter Care Teams Buffet Runner Relationship Specialty Start Date End Date Marybeth Reddy MD [address] [place] [address] PCP - General Family Medicine 07/20/23 documented as of this encounter
[2024-06-24 13:57] LABS: HCG Quantitative < 2 mIU/mL
[2024-06-25 08:49] LABS: Prolactin 7.2 ng/mL
[2024-06-29 16:38] LABS: Testosterone, Total 14 ng/dL (2-45)
[2024-07-07 06:53] LABS: Estradiol Ultra Sensitive 7 pg/mL
== END 2024-06-24 10:58 | disposition home or self-care (01) ==
LOC: HO.HHCL 10:57
PROVIDERS: Visit Provider Advanced Practice Midwife
DX: N91.2 Amenorrhea, unspecified (principal)
CPT/HCPCS: 36415; 82670; 83001; 84146; 84403; 84443; 84702

== ENCOUNTER 2024-06-24 17:27 | Outpatient (REF) | payer MEDICAID, SELFPAY ==
[2024-06-27 14:14] LABS: HPV Genotype 16 Negative (Negative); HPV Genotype 18 Negative (Negative); HPV High Risk Negative (Negative)
== END 2024-06-24 17:28 | disposition home or self-care (01) ==
LOC: HO.HHCLNP 17:27
PROVIDERS: Visit Provider Advanced Practice Midwife
DX: Z12.4 Encounter for screening for malignant neoplasm of cervix (principal)
CPT/HCPCS: 36415; 82670; 83001; 84146; 84403; 84443; 84702; 87626; 88175

== ENCOUNTER 2024-08-15 10:43 | Outpatient (REF) | payer MEDICAID, SELFPAY ==
--- OUTSIDE RECORDS SUMMARY | 2024-08-15 11:24 | XMS_ITS | Clinical Summary ---
Author Organization [facility] Address [address] [place] [address] Phone Care Team Providers Care Social Director Name Role Phone Physician, No Pcp Primary [...] 107 01/08/2024 1:20 PM EST Temperature 36.7 C (98.1 F) 01/08/2024 1:20 PM EST Respiratory Rate 16 01/08/2024 1:20 PM EST [...] Influencers of Health Screening 01/08/2024 Influenza Vaccine (#1) 2024 11/06/2020 DTaP,Tdap,and Td Vaccines (3 - [...] 5 Years) and At-Risk Patients (6 to 49 Years) Aged Out No longer eligible b ased on patient's age to complete this topic RSV Immunization Patients Under 20 months Aged Out No longer eligible b ased on patient's age to complete this topic Varicella Vaccines Aged Out No longer eligible based on patient's age to complete this topic Insurance MEDICAID - [place] Care Teams Social Director Relationship Specialty Start Date End Date Physician, No Pcp PCP - General 01/08/24
[2024-08-29 15:54] LABS: Fragile X, PCR (Xsense (TM)) NEGATIVE
== END 2024-08-15 10:44 | disposition home or self-care (01) ==
LOC: HO.HHCL 10:43
PROVIDERS: PCP Family Medicine; Visit Provider Advanced Practice Midwife
DX: E28.39 Other primary ovarian failure (principal)
CPT/HCPCS: 36415; 81243; 81244; 88230; 88262

== ENCOUNTER 2024-11-28 11:22 | Outpatient (REF) | payer MEDICAID, SELFPAY ==
--- OUTSIDE RECORDS SUMMARY | 2024-11-28 14:33 | XMS_ITS | Clinical Summary ---
Author Organization [facility] Address [address] [place] [address] Phone Care Team Providers Care Batch Tank Controller Name Role Phone Physician, No Pcp Primary [...] Cervical Cancer Screening: P ap Smear 06/18/2004 HPV Vaccines (1 - 3-dose SCD M series) 06/18/2010 Cholesterol Screening (Lipid Panel) 01/08/2024 Hypertension/CHF/CAD Annual BMP Blood Test 01/08/2024 Social Influencers of Health Screening 01/08/2024 Depression Screening 02/07/2024 COVID-19 Vaccine (1 - 2023-2 5 season) 2024 Influenza Vaccine (#1) 2024 11/06/2020 DTaP,Tdap,and Td Vaccines (3 - Td or Tdap) 03/12/2029 03/12/2019, 08/25/2016 RSV Immunization Adult Patients (1 - 1-dose 75+ series) 06/18/2058 HIV [...] topic Insurance MEDICAID - [place] Care Teams Batch Tank Controller Relationship Specialty Start Date End Date Physician, No Pcp PCP - General 01/08/24
--- OUTSIDE RECORDS SUMMARY | 2024-11-28 14:33 | XMS_ITS | Clinical Summary ---
Author Organization [employer] Address [address] [facility] 7t [place] [address] Care Team Providers Care Men'S Golf Coach Name Role Phone Marybeth Reddy MD Primary Care Provider [phone] Allergies No known active allergies Medications acetaminophen (Tylenol) 500 MG tablet Take 2 tablets (1,000 mg) by mouth every 6 (six) hours if needed for moderate pain or fever. 40 tablet 02/07/19 24 Active hydrocortisone 2.5 % cream Apply to affected area once daily as needed. Apply thin layer 28 g 3 07/20/19 24 Active dextran 70-hypromellos e (artificial tears) 0.1-0.3 % ophthalmic solution Administer 1 drop into both eyes if needed in the morning, at noon, and at bedtime for dry eyes. 15 mL 1 01/16/20 24 025 Active amLODIPine (Norvasc) 10 MG tablet TAKE 1 TABLET BY MOUTH EVERY DAY 90 tablet 1 06/25/19 25 Active pantoprazole (ProtoNix) 40 MG EC tablet TAKE 1 TABLET BY MOUTH EVERY DAY BEFORE BREAKFAST 90 tablet 3 10/01/19 25 Active cromolyn (Opticrom) 4 % ophthalmic solution INSTILL 1 DROP IN THE AFFECTED EYE 4 TIMES A DAY IN THE MORNING, AT NOON, IN THE EVENING, AND AT BEDTIME IF NEEDED FOR REDNESS & FOR ITCHING 10 mL 2 10/02/19 25 Active progesterone (Prometrium) 100 MG capsule Take 1 capsule (100 mg) by mouth Once per day for 180 doses. 30 capsule 5 11/15/19 25 026 Active estradiol (Climara) 0.1 MG/24HR Place 1 patch on the skin 1 (one) time per week. 4 patch 5 11/15/19 25 Active estradiol (Climara) 0.1 MG/24HR Place 1 patch on the skin 1 (one) time per week. 4 patch 2 08/16/19 25 025 Discontinued progesterone (Prometrium) 100 MG capsule Take 1 capsule (100 mg) by mouth Once per day for 90 doses. 30 capsule 2 08/16/19 25 025 Discontinued(Re order (will not trigger notification to Pharmacy)) estradiol (Climara) 0.1 MG/24HR PLACE 1 PATCH ONCE A WEEK 4 patch 11/06/19 25 025 Discontinued(Re order (will not trigger notification to Pharmacy)) Active Problems Problem Noted Date Diagnosed Date Primary ovarian insufficiency 08/15/2024 Dry eye 01/17/2024 Pain in finger of right hand 01/16/2024 [...] prescribed Cromolyn eye drops. - referred to [facility] 01/16/24 Tinnitus of left ear [...] 140/90 -to resume amlodipine today -request for [employer] apt to start care -advised to monitor [...] (11/24/2022): Last Assessment & Plan: Referral to [facility]. Discussed that it will take some follow-up to be able to communicate helpfully about any disability caused by her medical conditions. Obesity due to excess calori es, unspecified obesity severity 09/04/2018 11/24/2022 Overview (11/24/2022): Last Assessment & Plan: A1c Resolved Problems Problem Noted Date Diagnosed Date Resolved Date Amenorrhea 01/16/2024 08/15/2024 Assessment & Plan (01/16/2024 10:42 AM EST): Reports having her period for 6 moths and then not having it for a long time. This has been happening for years. - will schedule for PAP smear Encounter for screening mamm ogram for malignant neoplasm of breast 07/20/2023 07/21/2023 Encounters Date Type Department Care Team Description 11/14/2024 11:00 AM EDT Office Visit [facility] [address] [place] [address] Arlet Mariscal CNM Primary ovarian insufficiency (Primary Dx); Breast cancer screening by mammogram 11/14/2024 Travel 11/13/2024 Telephone [facility] [address] [place] [address] Marybeth Reddy MD chartprep 11/04/2024 Refill [facility] [address] [place] [address] Arlet Mariscal CNM 10/31/2024 Refill [facility] [address] [place] [address] Arlet Mariscal CNM 10/23/2024 Telephone [facility] [address] [place] [phone] Arlet Mariscal CNM chart prep 10/16/2024 Telephone [facility] [address] [place] [address] Korin Titus [place] 09/30/2024 Refill [facility] [address] [place] [address] Marybeth Reddy MD 09/29/2024 Refill [facility] [address] [place] [phone] Marybeth Reddy MD 09/02/2024 Results Follow-Up [address] [phone] Arlet Mariscal CNM XSense, Fragile X with Reflex and Chromosome Analysis, Blood, Chromosome Analysis, Blood from Last 3 Months Immunizations Immunization Administration Dates Next Due Influenza injectable quadrivalent preservative f ree 11/06/2020 Tdap 03/12/2019,08/25/2016 Family History Medical History Relation Name Comments Breast cancer Neg Hx Colon cancer Neg Hx Ovarian cancer Neg Hx Social History Tobacco Use Types Packs/Day Years Used Date Smoking Tobacco: Never Passive Smoke Exposure: Never Smokeless Tobacco: Never Tobacco Cessation:Counseling Given: Not Answered Alcohol Use Standard Drinks/Week Comments Never 0 (1 standard drink = 0.6 oz pur e alcohol) Depression Answer Date Recorded Patient Health Questionnaire-9 [...] Access Q2 Not on file 06/24/2024 Comments No Intention Date Recorded No desire to become (finding) 0 08/15/2024 Sex and Gender Information Value Date Recorded Sex Assigned at Female 12/06/2021 10:31 AM EDT Legal Sex Female 10:31 AM EDT Gender Identity Female 12/06/2021 10:31 AM EDT Sexual Orientation Straight 11/24/2022 12 :20 PM EDT Last Filed Vital Signs Vital Sign Reading Time Taken Comments Blood Pressure 140/70 11/14/2024 11:21 AM EDT Pulse 75 11/14/2024 11:21 AM EDT Temperature 36.7 C (98.1 F) 11/14/2024 11:21 AM EDT Respiratory Rate 14 11/14/2024 11:21 AM EDT Oxygen Saturation 100% 11/14/2024 11:21 AM EDT Inhaled Oxygen Concentration - - Weight 74.2 kg (163 lb 9.6 oz) 11/14/2024 11:21 AM EDT Height 154.9 cm (5' 1 ) 08/15/2024 10:17 AM EDT Body Mass Index 30.91 08/15/2024 10:17 AM EDT Plan of Treatment Upcoming Encounters Date Type Department Care Team (Late st Contact Info) Description 12/31/2024 2:15 PM EST Office Visit [facility] [address] [place], [place] [phone] Marybeth Reddy MD [address] [place], [place] [phone] 03/14/2025 3:00 PM EST Office Visit [facility] [address] [place] [address] DevonMiley armenta, OD [address] [place] [address] Health Maintenance Due Date Last Done Comments HPV Vaccines (1 - 3-dose series) 06/18/1998 Hepatitis B Vaccines (1 of 3 - 19+ 3-dose series) 06/18/2002 Diabetes: Hemoglobin A1C 04/15/2024 024, 07/20/2023, 07/20/2023 COVID-19 Vaccine ( - 2024-2 6 season) 2024 03/08/2021, 07/24/2020, 06/22/2020 Influenza Vaccine (#1) 2024 11/06/2020 Depression Screening 01/17/2025 01/18/2024, 01/18/2024 Alcohol/Substance Use Screening 06/24/2025 06/24/2024 Disability Screening 06/24/2025 06/24/2024 SDOH Screening 06/24/2025 06/24/2024 Mammogram 07/24/2025 07/25/2023 Family Planning (PISQ) 08/15/2025 08/15/2024 Tobacco Screening 08/15/2025 08/15/2024 Lipid Panel 07/19/2028 07/20/2023 DTaP/Tdap/Td Vaccines (3 - T d or Tdap) 03/12/2029 03/12/2019, 08/25/2016 Cervical Cancer Screening 06/24/2029 HPV/Cotest 06/24/2029 06/24/2024, 06/10/2016, 05/03/2016 Pap Smear 06/24/2029 06/24/2024 Zoster Vaccines (1 of 2) 06/18/2033 RSV [...] Years) and At-Risk Patients (6 to 49) Years Aged Out No longer eligible b ased on patient's age to complete this topic RSV under 20 months Aged Out No longe r eligible based on patient's age to complete this topic Rotavirus Vaccines Aged Out No longer eligible based on patient's age to complete this topic Procedures Procedure Name Priority Date/Time Associated Diagnosis Comments POCT , URINE Routine 11/14/2024 11:35 AM EDT Primary ovarian insufficiency HPV DNA, LOW/HIGH RISK Routine 06/24/2024 10:43 AM EDT PAP SMEAR Routine 06/24/2024 10:43 AM EDT Cervical cancer screening POCT GLYCOSYLATED HEMOGLOBIN (HGB A1C) Routine 01/16/2024 [...] LDL Routine 07/20/2023 9:59 AM EDT Prediabetes from Last 3 Months or Most Recently Relevant to Health Maintenance Results * POCT Urine (11/14/2024 11:35 AM EDT) Preg Test, Ur Negative Negative, Indeterminate, None Detected, Invalid, Specimen unsatisfactory for evaluation, Weakly Positive, 2+ QC Media Lot # [id number] Lot# Expiration Date [id number] Urine 11/14/2024 11:3 5 AM EDT Arlet Mariscal CNM POINT OF CARE TEST ENTER/ EDIT ORDERABLES Final Result * HPV DNA, Low/High Risk (06/24/2024 10:43 AM EDT) HPV High Risk Negative Negative [facility] HPV Genotype 16 Negative Negative [facility] HPV Genotype 18 Negative Negative [facility] Comment:HPV testing performe d at [facility] (CLIA#[id number]), [address] [place] [address].Testing for HPV was performed using the Bird CUATE 6800system. The presence of HPV in the female genital tract isassociated with a number of diseases, including cervicalcarcinoma. The HPV DNA high risk pool tests for HPV 31, 33,35, 39, 45, 51, 52, 56, 58, 59, 66 and 68. The testing forHPV 16 and 18 genotypes has also been performed. A positiveresult indicates detection of nucleic acid sequences fromone or more subtypes, whereas a negative result indicatessuch sequences were not detected. 06/24/2024 10:4 3 AM EDT 06/25/2024 10:51 AM EDT Arlet SOLIZ LAB BLOOD ORDERABLES Merlyn crouch Result [facility] [address] [place] [phone] * Pap Smear (06/24/2024 10:43 AM EDT) Swab Cervix uteri structure / Unknown 06/24/2024 10:43 AM EDT 06/25/2024 10:51 AM EDT Narrative [facility] - 06/27/2024 10:14 AM EDT ----- ------- Name: Luann Zeng Age/Sex: 39/F : 1985 Unit#: [id number] Attend Dr: ARLET MARISCAL CNM Re06/24/24 Status: DEP REF Location: [facility] Disch: ----- ------- SPEC : [id number] RECD: 06/25/24-1050 STATUS: YINKA MCCANN NUM: [id number] IRVIN: 06/24/24-[address]: ARLET MARISCAL CNM ENTERED: 06/25/24 SP TYPE: Pap Smr OTHR DR: ORDERED: Pap Smear Interpretation Satisfactory for evaluation. Negative for intraepithelial lesion or malignancy. Scant cellularity. HPV High Risk: Negative HPV Genotyping 16: Negative HPV Genotyping 18: Negative Clinical Information LMP:Unknown date Previous PAP test:Unknown date/findings : Material Received ThinPrep-Cervical ----- ------- Signed (signature on file) WALTER Landrum (ASCP) 06/27/24 1014 ----- ------- END OF REPORT Arlet SOLIZ LAB CYTOLOGY ORDERABLES F inal Result [facility] [address] [place] [phone] * POCT glycosylated hemoglobin (Hgb A1c) (01/16/2024 10:37 AM EST) Hemoglobin A1C 6.0 4.0 - 6.0 % QC Media Lot # [id number] Lot# Expiration Date [id number] Blood Capillary blood specimen / Unknown 01/16/2024 10:37 AM EST Marybeth Reddy MD POINT OF CARE TEST ENTER/EDIT OR DERABLES Final Result * BI Mammogram Screening Tomosynthesis Bilateral (07/25/2023 1:31 PM EDT) Anatomical Region Laterality Modality Breast Bilateral Mammography 07/25/2023 1:31 PM EDT Narrative 08/24/2023 3:16 PM EDT [address] [place] [address] Mammography Report Signed Patient: Luann Zeng MR#: [id number] : 1985 Acct:[id number] Age/Sex: 38 / F ADM Date: 07/25/23 Loc: HO.MAMMO Attending Dr: Marybeth Reddy MD Ordering Physician: Marybeth Reddy MD Results: 1Negative Date of Service: 07/25/23 Follow Up: 1 Year From Orig ina Mammogram Procedure(s): MM tomosynthesis screening BI Accession Number(s): [id number] cc: Marybeth Reddy MD EXAMINATION: MM SCREENING [...] in OV> 08/24/23 1513 DD/ 1331 TD/TT: Resident Care Manager: Procedure Note Donotuseinterpreter, Image - 08/24/[address] [place] [address] Mammography Report Signed Patient: Luann ZengMR#: [id number] : 1985Acct:[id number] Age/Sex: 38 / FADM Date: 07/25/23 Loc: JANIS.MAMMO Attending Dr: Marybeth Reddy MD Ordering Physician: Marybeth Reddy MDResults: 1Negative Date of Service: 07/25/23Follow Up: 1 Year From Orig ina Mammogram Procedure(s): MM tomosynthesis screening BI Accession Number(s): [id number] cc: Marybeth Reddy MD EXAMINATION: MM SCREENING [...] in OV> 08/24/23 1513 DD/ 1331 TD/TT: Resident Care Manager: us Marybeth Reddy MD IMG BI PROCEDURES Final Result * (ABNORMAL) Lipid Panel with Reflex to Direct LDL (07/20/2023 9:59 AM EDT) Triglycerides 96 <150 mg/dL [facility] Comment:Desirable Triglyceri de: less than 150 mg/dLBorderline High Triglyceride 150-199 mg/dLHigh Triglyceride: 200-499 mg/dLVery High Triglyceride: greater than or equal to 5OO mg/dL Cholesterol 176 <200 mg/dL [facility] Comment:Desirable Cholestero l: less than 200 mg/dLBorderline High Cholesterol: 200-239 mg/dLHigh Cholesterol: greater than 239 mg/dL LDL Cholesterol Calculated 116(H) <100 mg/dL [facility] Comment:Desirable LDL: less than 100 mg/dLNear Optimal/Above Optimal LDL: 110- 129 mg/dLBorderline High LDL: 130-159 mg/dLHigh LDL: 160-189 mg/dLVery High LDL: greater than or equal to 190 mg/dL HDL Cholesterol 41 >40 mg/dL [facility] Comment:Desirable HDL: great er than 40 mg/dL Note: This HDL assay may give artificially low results in patients with liver disease. Blood 07/20/2023 9:59 AM EDT 07/20/2023 11:49 AM EDT us Marybeth Reddy MD LAB BLOOD ORDERABLES Final Resul t Performing Organization Address [facility] Co de Phone Number [facility] [address] [place] [phone] * Hepatitis C Antibody with Reflex to HCV, RNA, Quantitative, Real-Time PCR (07/20/2023 9:59 AM EDT) Hepatitis C Antibody Nonreactive Nonreactive [facility] Comment:Antibodies to HCV no t detected; does not exclude early acuteHCV infection. Blood Venous blood specimen / Unknown 07/20/2023 9:59 AM EDT 07/20/2023 11:49 AM EDT Marybeth Reddy MD LAB BLOOD ORDERABLES Final Resul t Performing Organization Address [facility] Co de Phone Number [facility] [address] [place] [phone] * HIV-1/2 Antigen and Antibodies, Fourth Generation, with Reflexes (07/20/2023 9:59 AM EDT) HIV AB/AG Nonreactive Nonreactive [facility] Comment:HIV-1 p24 Ag and/or HIV-1/HIV-2 Ab not detected.A test result that is nonreactive does not exclude thepossibility of exposure to or infection with HIV-1 and/orHIV-2. Nonreactive results in this assay for individualswith prior exposure to HIV-1 and/or HIV-2 may be due toantigen and antibody levels that are below the limit ofdetection of this assay.The [employer] HIV Ag/Ab Combo assay result andsupplemental assay results should be interpreted inconjunction with the patient's clinical presentation,history and other laboratory results. If the results areinconsistent with clinical evidence, additional testing issuggested to confirm the result. Blood Venous blood specimen / Unknown 07/20/2023 9:59 AM EDT 07/20/2023 11:49 AM EDT us Marybeth Reddy MD LAB BLOOD ORDERABLES Final Resul t [facility] [address] [place] [phone] from Last 3 Months or Most Recently Relevant to Health Maintenance Insurance C3 Care Teams Men'S Golf Coach Relationship Specialty Start Date End Date Marybeth Reddy MD [address] [place] [phone] PCP - General Family Medicine 07/20/23
--- OUTSIDE RECORDS SUMMARY | 2024-11-28 14:33 | XMS_ITS | Encounter Summary ---
Author Organization [employer] Address [address] [place] [address] Care Team Providers Care Data Entry Email Processor Name Role Phone Marybeth Reddy MD Primary Care Provider [phone] Reason for Visit * Reason Comments Med Refill Encounter Details Date Type Department Care Team (Late st Contact Info) Description 10/31/2024 Refill [facility] [address] [place], [place] [phone] Rachelle Mina CNM [address] [place], [place] [phone] Social History Tobacco Use Types Packs/Day Years Used Date Smoking Tobacco: Never Passive Smoke Exposure: Never Smokeless Tobacco: Never Alcohol Use Standard Drinks/Week Comments Never 0 [...] t he electric, gas, oil or water [employer] threatened to shut off services in your home? No 07/10/2023 Depression Answer Date Recorded Patient Health Questionnaire-2 Score 1 01/18/2024 Internet Access Answer Date Recorded Internet Access Q1 Yes 06/24/2024 Internet Access Q2 Not on file 06/24/2024 Comments No Sex and Gender Information Value Date Recorded Sex Assigned at Female 12/06/2021 10:31 AM EDT Legal Sex Female 10:31 AM EDT Gender Identity Female 12/06/2021 10:31 AM EDT Sexual Orientation Straight 11/24/2022 12 :20 PM EDT documented as of this encounter Plan of Treatment Upcoming Encounters Date Type Department Care Team (Late st Contact Info) Description 12/31/2024 2:15 PM EST Office Visit [facility] [address] [place] [address] Marybeth Reddy MD [address] [place], [place] [phone] 03/14/2025 3:00 PM EST Office Visit [facility] [address] [place] [address] Devon, Miley, OD [address] [place] [address] documented as of this encounter Visit Diagnoses Not on filedocumented in this encounter Additional Health Concerns Assessment Noted Time PHQ-9 Depression Total Score: 3 01/18/20 10:03 AM EST documented as of this encounter Care Teams Data Entry Email Processor Relationship Specialty Start Date End Date Marybeth Reddy MD [address] [place] [phone] PCP - General Family Medicine 07/20/23 documented as of this encounter
--- OUTSIDE RECORDS SUMMARY | 2024-11-28 14:33 | XMS_ITS | Encounter Summary ---
Author Organization [facility] Address [address] [facility] 7t [place] [address] Care Team Providers Care Positive Printer Operator Name Role Phone Marybeth Reddy MD Primary Care Provider [phone] Reason for Visit * Reason Onset Date Comments New Patient 11/29/2022 Encounter Details Date Type Department Care Team (Late st Contact Info) Description 11/29/2022 Telephone [facility] [address] [place] [phone] Antwan Hastings MD [address] [place] [address] [phone] New Patient Social History Tobacco Use Types [...] we do take insurance, but must call [facility] to change location. Once done, to please call back to facility at [phone] documented in this encounter Plan of Treatment Upcoming Encounters Date Type Department Care Team (Late st Contact Info) Description 12/31/2024 2:15 PM EST Office Visit [facility] [address] [place], [place] [phone] Marybeth Reddy MD [address] [place], [place] [phone] 03/14/2025 3:00 PM EST Office Visit [facility] [address] [place], [place] [phone] Miley Osorio, OD [address] [place], [place] [phone] documented as of this encounter Visit Diagnoses Not on filedocumented in this encounter Care Teams Positive Printer Operator Relationship Specialty Start Date End Date Marybeth Reddy MD [address] [place], [place] [phone] PCP - General Family Medicine 07/20/23 documented as of this encounter
== END 2024-11-28 11:23 | disposition home or self-care (01) ==
LOC: HO.LAB 11:22
PROVIDERS: PCP Family Medicine; Visit Provider Advanced Practice Midwife
DX: E28.39 Other primary ovarian failure (principal)
CPT/HCPCS: 36415; 83519

== ENCOUNTER 2024-12-31 14:55 | Outpatient (REF) | payer MEDICAID, SELFPAY ==
--- OUTSIDE RECORDS SUMMARY | 2024-12-31 14:15 | XMS_ITS | Encounter Summary ---
Author Organization [employer] Address [address] [facility] [address] [place] [address] Care Team Providers Care Precision Lens Polisher Name Role Phone Marybeth Reddy MD Primary Care Provider Reason for Visit * Reason Comments Follow-up Hypertension Encounter Details Date Type Department Care Team (Late st Contact Info) Description 12/31/2024 2:15 PM EST Office Visit [facility] [address] [place], [place] [phone] Marybeth Reddy MD [address] [place], [place] [phone] Essential hypertension (Primary Dx); Prediabetes; Dietary counseling; Exercise counseling; Class 1 obesity due to excess calories with serious comorbidity and body mass index (BMI) of 30.0 to 30.9 in adult; Chest pain, unspecified type; Palpitation; Screening for lipid disorders Social History Tobacco Use Types Packs/Day Years [...] Sign Reading Time Taken Comments Blood Pressure 132/80 12/31/2024 2:21 PM EST Pulse 73 12/31/2024 2:21 PM EST Temperature 36.3 C (97.3 F) 12/31/2024 2:21 PM EST Respiratory Rate 20 12/31/2024 2:21 PM EST Oxygen Saturation 99% 12/31/2024 2:21 PM EST Inhaled Oxygen Concentration - - Weight 78.3 kg (172 lb 9.6 oz) 12/31/2024 2:21 P M EST Height 154.9 cm (5' 1 ) 12/31/2024 2:21 PM EST Body Mass Index 32.61 12/31/2024 2:21 PM EST documented in this encounter Miscellaneous Notes * Assessment & Plan Note - Marybeth Reddy MD - 12/31/2024 2:38 PM ESTAssociated Problem(s): Prediabetes - A1c 6.2 in July 2023 - A1c 6.0 01/16/2024 -continue lifestyle modification * Assessment & Plan Note - Marybeth Reddy MD - 12/31/2024 2:37 PM ESTAssociated Problem(s): Essential hypertension - Goal BP < 130/80 per ACC / AHA - BP borderline today - continue working on lifestyle modifications - continue Amlodipine 10 mg daily documented in this encounter Plan of Treatment Upcoming Encounters Date Type Department Care Team (Late st Contact Info) Description 03/14/2025 3:00 PM EST Office Visit [facility] OPT[facility]RY [address] [place] [address] Devon, Miley, OD [address] [place] [address] documented as of this encounter Procedures Procedure Name Priority Date/Time Associated Diagnosis Comments LIPID PANEL WITH REFLEX TO DIRECT LDL Routine 12/31/2024 3:02 PM EST Screening for lipid disorders ALBUMIN, RANDOM URINE W/CREATININE Routine 12/31/2024 3:02 PM EST Essential hypertension CBC WITH AUTO DIFFERENTIAL Routine 12/31/2024 3:02 PM EST Essential hypertension Palpitation HEMOGLOBIN A1C Routine 12/31/2024 3:02 PM EST Prediabetes COMPREHENSIVE METABOLIC PANEL Routine 12/31/2024 3:02 PM EST Essential hypertension Palpitation ECG 12-LEAD Routine 12/31/2024 2:54 PM EST Chest pain, unspecified type documented in this encounter Results * Albumin, Random Urine W/Creatinine (12/31/2024 3:02 PM EST) Creatinine, Urine 147.45 mg/dL [facility] Microalbumin Urine 20.0 mg/L [facility] Microalbum Creatinine Ratio Ur 13.5 <30 ug/mg cr [facility] Comment:Albumin/Creatinine R atio Reference Ranges: Normal: < 30 ug/mg creatinine Microalbuminuria: 30 - 300 ug/mg creatinineClinical Albuminuria: > 300 ug/mg creatinine Urine 12/31/2024 3:02 PM EST 12/31/2024 3:59 PM EST Marybeth Reddy MD LAB URINE ORDERABLES Final Resul t Performing Organization Address [facility] Co de Phone Number [facility] [address] [place] [phone] * Hemoglobin A1c (12/31/2024 3:02 PM EST) Hemoglobin A1c 5.8 <6.0 % [facility] Comment:Hemoglobin A1C Refer ence Range Adults: 4.8 - 6.0 % Non diabetic: < 6.0 % Goal: < 7.0 %Additional Action Suggested: > 8.0 %Note: Hemoglobin A1c results are invalid for patients with abnormal amounts of HbF. Blood transfusions may impact the HbA1c concentration in the patient sample. Estimated Average Glucose 120 mg/dL [facility] Comment:eAG = Estimated ave rage glucose which is %A1C expressed asaverage glucose, using the formula of the [id number] Glucose study (ADAG), Diabetes Care, Vol.31,#8,Sep. 2007 Blood Venous blood specimen / Unknown 12/31/2024 3:02 PM EST 12/31/2024 4:08 PM EST us Marybeth Reddy MD LAB BLOOD ORDERABLES Final Resul t Performing Organization Address City/[facility]/ZIP Co de Phone Number [facility] [address] [place] [phone] * Lipid Panel with Reflex to Direct LDL (12/31/2024 3:02 PM EST) Triglycerides 126 <150 mg/dL [facility] Comment:Desirable Triglyceri de: less than 150 mg/dLBorderline High Triglyceride 150-199 mg/dLHigh Triglyceride: 200-499 mg/dLVery High Triglyceride: greater than or equal to 5OO mg/dL Cholesterol 166 <200 mg/dL [facility] Comment:Desirable Cholestero l: less than 200 mg/dLBorderline High Cholesterol: 200-239 mg/dLHigh Cholesterol: greater than 239 mg/dL LDL Cholesterol Calculated 90 <100 mg/dL [facility] Comment:Desirable LDL: less than 100 mg/dLNear Optimal/Above Optimal LDL: 110- 129 mg/dLBorderline High LDL: 130-159 mg/dLHigh LDL: 160-189 mg/dLVery High LDL: greater than or equal to 190 mg/dL HDL Cholesterol 51 >40 mg/dL [facility] Comment:Desirable HDL: great er than 40 mg/dL Note: This HDL assay may give artificially low results in patients with liver disease. Blood 12/31/2024 3:02 PM EST 12/31/2024 4:08 PM EST us Marybeth Reddy MD LAB BLOOD ORDERABLES Final Resul t [facility] [address] [place] [phone] * (ABNORMAL) Comprehensive Metabolic Panel (12/31/2024 3:02 PM EST) Sodium 140 135 - 145 mmol/L [facility] Potassium 3.6 3.3 - 5.1 mmol/L [facility] Chloride 109(H) 96 - 108 mmol/L [facility] Carbon Dioxide 26 22 - 29 mmol/L [facility] Anion Gap 9(L) 12 - 20 [facility] Urea Nitrogen (BUN) 12 9 - 16 mg/dL [facility] Creatinine, Serum 0.60 0.5 - 1.4 mg/dL [facility] Estimated Glomerular Filt Rate >60 [facility] Comment:Chronic Kidney Disea se: Estimated GFR < 60 mL/min/1.14n9Mpolek Kidney Disease: Estimated GFR < 15 mL/min/1.73m2 Glucose 114 60 - 115 mg/dL [facility] Calcium 8.8 8.4 - 10.2 mg/dL [facility] Bilirubin, Total 0.1 0.0 - 1.0 mg/dL [facility] Aspartate Amino Transferase 18 5 - 31 U/L [facility] Alanine Aminotransferase 20 0 - 31 U/L [facility] Total Protein 7.9 6.5 - 8.0 g/dL [facility] Albumin Level 4.4 3.5 - 5.0 g/dL [facility] Alkaline Phosphatase 71 39 - 117 U/L [facility] Blood Venous blood specimen / Unknown 12/31/2024 3:02 PM EST 12/31/2024 4:08 PM EST us Marybeth Reddy MD LAB BLOOD ORDERABLES Final Resul t [facility] [address] [place] [phone] * (ABNORMAL) CBC auto differential (12/31/2024 3:02 PM EST) White Blood Count 10.3 4.8 - 10.8 X10*3/uL [facility] Red Blood Count 5.09 4.20 - 5.50 X10*6/uL [facility] Hemoglobin 13.1 12.0 - 16.0 g/dl [facility] Hematocrit 41.6 37.0 - 47.0 % [facility] Mean Corpuscular Volume 81.7 80.0 - 98.0 fL [facility] Mean Corpuscular Hemoglobin 25.7(L) 27.0 - 33.0 pg [facility] Mean Corpuscular HGB Conc 31.5 31.0 - 35.0 g/dl [facility] Red Cell Distribution Width 13.8 11.0 - 16.0 % [facility] Platelet Count 304 160 - 400 X10*3/uL [facility] Mean Platelet Volume 11.3 9.4 - 12.3 fL [facility] Neutrophils Percent Auto 62.8 45 - 73 % [facility] Imm Gran Pct Auto 0.3 0.0 - 0.4 % [facility] Lymphocytes Percent Auto 27.3 20 - 40 % [facility] Monocytes Percent Auto 6.2 2 - 11 % [facility] Eosinophils Percent Auto 2.9 0 - 4 % [facility] Basophils Percent Auto 0.5 0 - 2 % [facility] NRBC Pct Auto 0.0 0.0 - 0.2 /100WBC [facility] Neutrophils Absolute Auto 6.5 2.0 - 8.3 x10*3/uL [facility] Imm Gran Abs Auto 0.03 0.00 - 0.03 X10*3/uL [facility] Lymphocytes Absolute Auto 2.8 1.2 - 4.9 X10*3/uL [facility] Monocytes Absolute Auto 0.6 0.1 - 1.2 X10*3/uL [facility] Eosinophils Absolute Auto 0.3 0.0 - 0.4 X10*3/uL [facility] Basophils Absolute Auto 0.1 0.0 - 0.2 X10*3/uL [facility] NRBC Abs Auto 0.000 0.0 - 0.012 X10*3/uL [facility] Blood Venous blood specimen / Unknown 12/31/2024 3:02 PM EST 12/31/2024 4:08 PM EST us Marybeth Reddy MD LAB BLOOD ORDERABLES Final Resul t [facility] [address] [place] [phone] * ECG 12 lead (12/31/2024 2:54 PM EST) Narrative Marybeth Reddy MD - 12/31/2024 2:54 PM EST Rate 80, sinus rhythm, PR138 ms, QRS narrow, QTc 423 ms, normal axis, no acute ischemic ST-T changes, no hypertrophy. Marybeth Reddy MD ECG ORDERABLES Final Result documented in this encounter Visit Diagnoses Diagnosis Essential hypertension- Primary Unspecified essential hypertension Prediabetes Other abnormal glucose Dietary counseling Dietary surveillance and counseling Exercise counseling Class 1 obesity due to excess calories with serious comorbidity and body mass index (BMI) of 30.0 to 30.9 in adult Chest pain, unspecified type Palpitation Palpitations Screening for lipid disorders documented in this encounter Additional Health Concerns Assessment Noted Time PHQ-9 Depression Total Score: 3 01/18/20 24 10:03 AM EST documented as of this encounter Care Teams Precision Lens Polisher Relationship Specialty Start Date End Date Marybeth Reddy MD [address] [place] [address] PCP - General Family Medicine 07/20/23 documented as of this encounter
[2024-12-31 16:13] LABS: MANUAL DIFF FLAG NO
[2024-12-31 16:20] LABS: Hematocrit 41.6 % (37.0-47.0); Hemoglobin 13.1 g/dl (12.0-16.0); Imm Gran Abs Auto 0.03 X10*3/uL (0.00-0.03); Imm Gran Pct Auto 0.3 % (0.0-0.4); Lymphocytes Absolute Auto 2.8 X10*3/uL (1.2-4.9); Mean Corpuscular HGB Conc 31.5 g/dl (31.0-35.0); Mean Corpuscular Hemoglobin 25.7 pg (27.0-33.0); Mean Corpuscular Volume 81.7 fL (80.0-98.0); NRBC Abs Auto 0.000 X10*3/uL (0.0-0.012); NRBC Pct Auto 0.0 /100WBC (0.0-0.2); Platelet Count 304 X10*3/uL (160-400); Red Blood Count 5.09 X10*6/uL (4.20-5.50); White Blood Count 10.3 X10*3/uL (4.8-10.8)
[2024-12-31 16:38] LABS: Alanine Aminotransferase 20 U/L (0-31); Albumin Level 4.4 g/dL (3.5-5.0); Alkaline Phosphatase 71 U/L (39-117); Anion Gap 9 (12-20); Aspartate Amino Transferase 18 U/L (5-31); Blood Urea Nitrogen 12 mg/dL (9-16); Calcium 8.8 mg/dL (8.4-10.2); Carbon Dioxide 26 mmol/L (22-29); Chloride 109 mmol/L (96-108); Cholesterol 166 mg/dL (<200); Estimated Glomerular Filt Rate > 60; HDL Cholesterol 51 mg/dL (>40); Potassium 3.6 mmol/L (3.3-5.1); Sodium 140 mmol/L (135-145); Total Protein 7.9 g/dL (6.5-8.0); Triglycerides 126 mg/dL (<150)
[2024-12-31 17:03] LABS: Microalbum/Creatinine Ratio Ur 13.5 ug/mg cr (<30)
[2024-12-31 17:06] LABS: Reflex LDLD? No
--- OUTSIDE RECORDS SUMMARY | 2024-12-31 18:42 | XMS_ITS | Clinical Summary ---
Author Organization [facility] Address [address] [place] [address] Phone Care Team Providers Care Optical Instrument Repairer Name Role Phone Physician, No Pcp Primary [...] Depression Screening 02/07/2024 COVID-19 Vaccine (1 - 2024-2 6 season) 2024 Influenza Vaccine (#1) 2024 11/06/2020 [...] topic Insurance MEDICAID - [place] Care Teams Optical Instrument Repairer Relationship Specialty Start Date End Date Physician, No Pcp PCP - General 01/08/24
--- OUTSIDE RECORDS SUMMARY | 2024-12-31 18:42 | XMS_ITS | Encounter Summary ---
Author Organization [employer] Address [address] [facility] 7t [place] [address] Care Team Providers Care Hall Cleaner Name Role Phone Marybeth Reddy MD Primary Care Provider [phone] Reason for Visit * Reason Onset Date Comments chartprep 12/30/2024 Encounter Details Date Type Department Care Team (Late st Contact Info) Description 12/30/2024 Telephone [facility] [address] [place], [place] [phone] Marybeth Reddy MD [address] [place], [place] [phone] chartprep Social History Tobacco Use Types Packs/Day Years [...] encounter Miscellaneous Notes * Telephone Encounter - Fabi Roach MA - 12/30/2024 2:19 PM EST ..Chart Prep Labs: done Images: not done Vaccines due: Covid Due, Hep B Due, Flu Due, and HPV Referrals: Not Applicable Screenings: Not Applicable Overdue care gaps: PHQ9 and GAD7 documented in this encounter Plan of Treatment Upcoming Encounters Date Type Department Care Team (Late st Contact Info) Description 03/14/2025 3:00 PM EST Office Visit [facility] OPT[facility]ET[facility] [address] [place] [address] Devon, Miley, OD [address] [place] [address] documented as of this encounter Visit Diagnoses Not on filedocumented in this encounter Additional Health Concerns Assessment Noted Time PHQ-9 Depression Total Score: 3 01/18/20 10:03 AM EST documented as of this encounter Care Teams Hall Cleaner Relationship Specialty Start Date End Date Marybeth Reddy MD [address] [place] [address] PCP - General Family Medicine 07/20/23 documented as of this encounter
--- OUTSIDE RECORDS SUMMARY | 2024-12-31 18:42 | XMS_ITS | Continuity of Care Document ---
Author Organization [facility], [facility] Address [address] [place] [address] Care Team Providers Care Tool Clerk Name Role Phone ORI PRECIADO Primary Care Provider [phone] Assessment Encounter Date Assessment Date Assessment LastModified by Organization Details LastModified Time 12/06/2024 12/06/2024 39 year old Nauruan speaking female presents for evaluation of left-sided tinnitus. Audiometric testing today demonstrates essentially normal hearing bilaterally with the exception of very mild sensorineural hearing loss at 8000 Hz on the left. The pathophysiology of tinnitus was reviewed with the patient. We discussed the lack of consistently successful pharmacologic and surgical treatments for this, as well as how loud noise exposure can worsen tinnitus, so hearing protection was strongly recommended. She may benefit from masking strategies to decrease awareness, which include using a white noise machine, music, or television. I also encouraged avoidance of exacerbating factors such as stress, caffeine, high sodium meals, and nonsteroidal anti-inflammatory drugs. Recommend repeat audiogram in 1 year to monitor her hearing, however she was instructed to call the office for any new or worsening concerns. All questions were answered. [email or web address] Not available 12/06/2024 18:03:29 Plan of Treatment Reminders Order Date Submit Date Provider Last Modified By Organization Details Last Modified Time Details Appointments Hearing Test Same Day (First) 2025 01:00P M Hearing Test Not available Not available Not available Establish ed 15 2025 01:45P M JEFFREY SALEEM Not available Not available Not available Lab None recorded. Referral None recorded. Procedures None recorded. Surgeries None recorded. Imaging None recorded. Medication Orders None recorded. Patient TargetsNo targets recorded. Patient InstructionsNo instructions recorded. Reason for Referral None Reported. Results Created Date Observation Date Name Description Value Unit Range Abnormal Flag Note LastModifiedBy Organization Detail LastModifiedTime 12/07/19 audio gram No observ ation record ed. BARCODE Not Available 2024 14:43:54 12/07/19 audio gram No observ ation record ed. BARCODE Not Available 2024 14:52:23 Result Notes None recorded. Problems Name Problem SNOMED Code Status Onset Date Resolution Date Notes Provider Name and Address Organization Details Recorded Time Tinnitus of left ear 1522072526269 Active 2024 JEFFREY SALEEM [address] [facility],[address], [place], [phone], [facility] 18:02:21 Problem Notes None recorded. Procedures Surgical History Date Name Laterality Status Provider Name and Address Organization Details Recorded Time 12/06/2024 Air & Speech Audio with Tymps - 83473, 66764 & 90381 completed REYNA SEBASTIAN [address] [facility] [address], [place], [address], [facility] 12/06/2024 10:51:57 Imaging Results None recorded. Procedure Notes None recorded. Medical Equipment None Reported. Medications Name Sig Start Date Stop Date Status Note LastModified by Organization Details LastModified Time polyvinyl alcohol 1.4 % eye drops INSTILL 1 DROP IN EACH EYE THREE TIMES DAILY IN THE MORNING, AT NOON, AND AT BEDTIME NEEDED DRY EYES active Not Available Not Available No t Available cromolyn 4 % eye drops INSTILL 1 DROP IN THE AFFECTED EYE 4 TIMES A DAY IN THE MORNING, AT NOON, IN THE EVENING, AND AT BEDTIME IF NEEDED FOR REDNESS & FOR ITCHING active Not Available Not Available No t Available amlodipine 10 mg tablet TAKE 1 TABLET BY MOUTH EVERY DAY active Not Available Not Available No t Available pantoprazole 40 mg tablet,delaye d release TAKE 1 TABLET BY MOUTH DAILY BEFORE BREAKFAST active Not Available Not Available No t Available hydrocortison e 2.5 % topical cream APPLY A THIN LAYER TO AFFECTED AREA(S) ONCE DAILY NEEDED active Not Available Not Available No t Available estradiol 0.1 mg/[address] 1 PATCH ON SKIN ONCE A WEEK active Not Available Not Available No t Available progesterone micronized 100 mg capsule TAKE 1 CAPSULE BY MOUTH EVERY DAY active Not Available Not Available No t Available Vitals Date Recorded Body height Body mass index (BMI) Body weight Provider Name and Address Organization Details Last Updated DateTime 12/06/2024 154.94 cm 30.8 kg/m2 72753.56 g Xuan Lionadriana [facility] 12/06/2024 11:16:25 Social History None recorded. Functional Status None recorded. Mental Status None recorded. Family History Nothing Reported. Medical History No medical history recorded. Gynecological HistoryNo gynecological history recorded. Obstetrics History GPAL:G 0 P 0 0 0 0 Past Encounters Encounter ID Performer Location Encounter Start Date Encounter Closed Date Diagnosis/Indication Diagnosis SNOMED-CT Code Diagnosis ICD10 Code Diagnosis IMO Codes Diagnosis Note [id number] JEFFREY SALEEM [facility] of [address] [address] 12/06/2024 10:28:09 12/06/2024 15:42:13 Tinnitus of left ear 3398306531 106 H93.12 [id number] Right Ear:Normal hearing with excellent speech discrimina tion.Type A tympanogra m.Left Ear:Normal hearing with excellent speech discrimina tion.Type A tympanogra m. Family his tory of hearing loss 651742649 Z82.2 071074 Health Concerns Section Related Observation LastModified by Organization Detai ls LastModified Time None Recorded Concern Status LastModified by Organization Details LastModified Time None Recorded Payers Encounter Date Sequence Insurance Name Policy Number Policy Gee Covered Member ID Gee Member ID Guarantor Name 12/06/2024 1 [place] [facility] Luann Simmons [id number] Luann Ramires Notes Date Note Type Note Provider Name and Address Organization Details Recorded Time 12/06/2024 text/html ROS as noted in the HPI 39 year old Nauruan speaking female presents for evaluation of left-sided tinnitus. Patient reports onset began a year ago, described as a mild beeping sound. She states her hearing is good. Denies otalgia, otorrhea, and dizziness. No personal history of loud exposure. Father was previously diagnosed with hearing loss and tinnitus. No prior ear infections or surgeries. Jorge Aquino, [address] [facility],[place] [address], [place], [phone], [facility] - [facility] 12/09/2024 09:22:41 OBGyn Episode No OBEpisode recorded.
--- OUTSIDE RECORDS SUMMARY | 2024-12-31 18:42 | XMS_ITS | Data Portability ---
Author Organization [place] [facility], [facility] Address [address] [address] Care Team Providers Care Residential Lawn Specialist Name Role Phone ORI PRECIADO Primary Care Provider [phone] Assessment Encounter Date Assessment Date Assessment LastModified by Organization Details LastModified Time 12/06/2024 12/06/2024 39 year old Kinyarwanda speaking female presents for evaluation of left-sided [...] Details Recorded Time Tinnitus of left ear 3921718242796 Active 2024 JEFFREY SALEEM [address] [facility], [place], [address], [facility] 18:02:21 Problem Notes None recorded. Procedures Surgical History Date Name Laterality Status Provider Name and Address Organization Details Recorded Time 12/06/2024 Air & Speech Audio with Tymps - 01477, 73557 & 26274 completed REYNA SEBASTIAN [address] [facility] [address], [place], [address], [facility] 12/06/2024 10:51:57 Imaging Results None recorded. Procedure [...] Updated DateTime 12/06/2024 154.94 cm 30.8 kg/m2 20192.56 g Xuan Cabanury [facility] 12/06/2024 11:16:25 Social History None recorded. Functional Status None recorded. Mental Status None recorded. Family History Nothing Reported. Medical History No medical history recorded. Gynecological HistoryNo gynecological history recorded. Obstetrics History GPAL:G 0 P 0 0 0 0 Past Encounters Encounter ID Performer Location Encounter Start Date Encounter Closed Date Diagnosis/Indication Diagnosis SNOMED-CT Code Diagnosis ICD10 Code Diagnosis IMO Codes Diagnosis Note [id number] JEFFREY SALEEM [facility] of [address] [address] 12/06/2024 10:28:09 12/06/2024 15:42:13 Tinnitus of left ear [id number] 106 H93.12 [id number] Right Ear:Normal hearing with excellent speech discrimina tion.Type A tympanogra m.Left Ear:Normal hearing with excellent speech discrimina tion.Type A tympanogra m. Family his tory of hearing loss 672001022 Z82.2 465533 Health Concerns Section Related Observation LastModified by Organization Detai ls LastModified Time None Recorded Concern Status LastModified by Organization Details LastModified Time None Recorded Advance Directives Directive None Recorded Payers Insurance Date Sequence Insurance Name Policy Number Policy Gee Covered Member ID Gee Member ID Guarantor Name 12/16/2024 1 [place] [facility] Luann Simmons [id number] Luann Ramires Notes Date Note Type Note Provider Name and Address Organization Details Recorded Time 12/06/2024 text/html ROS as noted in the HPI 39 year old Kinyarwanda speaking female presents for evaluation of left-sided tinnitus. Patient reports onset began a year ago, described as a mild beeping sound. She states her hearing is good. Denies otalgia, otorrhea, and dizziness. No personal history of loud exposure. Father was previously diagnosed with hearing loss and tinnitus. No prior ear infections or surgeries. Jorge Aquino, [address],[place] [address], [place], [address], [facility] - [facility] 12/09/2024 09:22:41 OBGyn Episode No OBEpisode recorded.
--- OUTSIDE RECORDS SUMMARY | 2024-12-31 18:42 | XMS_ITS | Clinical Summary ---
Author Organization [email or web address] Address [address] [facility] 7[address] [place] [address] Care Team Providers Care Banking Officer Name Role Phone Marybeth Reddy MD Primary Care Provider [phone] Allergies No known active allergies Medications acetaminophen [...] 15 mL 1 01/16/20 24 025 Active pantoprazole (ProtoNix) 40 MG EC tablet [...] week. 4 patch 5 11/15/19 25 Active amLODIPine (Norvasc) 10 MG tablet TAKE 1 TABLET BY MOUTH EVERY DAY 90 tablet 1 12/17/19 25 Active amLODIPine (Norvasc) 10 MG tablet TAKE 1 TABLET BY MOUTH EVERY DAY 90 tablet 1 06/25/19 25 025 Discontinued Active Problems Problem Noted Date Diagnosed Date [...] prescribed Cromolyn eye drops. - referred to [facility] 01/16/24 Tinnitus of left ear [...] 1-2 weeks with readings. Assessment & Plan (12/31/2024 2:37 PM EST): - Goal BP < 130/80 per ACC / AHA - BP borderline today - continue working on lifestyle modifications - continue Amlodipine 10 mg daily Assessment & Plan (01/17/2024 12:23 PM EST): - Goal BP < 130/80 per ACC / AHA. BP sub optimal today 01/16/24 - continue Amlodipine as prescribed - encouraged to continue healthy lifestyle Assessment & Plan (07/20/2023 9:50 AM EDT): -continue Amlodipine as prescribed -encouraged to continue healthy lifestyle. Assessment & Plan (11/24/2022 11:13 PM EDT): BP 140/90 -to resume amlodipine today -request for [employer] apt to start care -advised to monitor BP at home Migraine 11/20/2018 11/24/2022 Overview (11/24/2022): Started on amitriptyline in 2017 Prediabetes 09/18/2018 11/24/2022 Overview (11/24/2022): Last Assessment & Plan: Recheck A1c in August Assessment & Plan (12/31/2024 2:38 PM EST): - A1c 6.2 in July 2023 - A1c 6.0 01/16/2024 -continue lifestyle modification Assessment & Plan (01/16/2024 10:40 AM EST): - A1c 6.2 in July 2023 - A1c 6.0 01/16/2024 -continue lifestyle modification Assessment & Plan (07/20/2023 9:53 AM EDT): -A1c 6.2 today -continue lifestyle modification Anxiety 09/04/2018 11/24/2022 Overview (11/24/2022): Last Assessment & Plan: Referral to [facility]. Discussed that it will take some follow-up [...] Encounters Date Type Department Care Team Description 12/31/2024 2:15 PM EST Office Visit [facility] MEDICINE [address] [place] [address] Marybeth Reddy MD Essential hypertension (Primary Dx); Prediabetes; Dietary counseling; Exercise counseling; Class 1 obesity due to excess calories with serious comorbidity and body mass index (BMI) of 30.0 to 30.9 in adult; Chest pain, unspecified type; Palpitation; Screening for lipid disorders 12/31/2024 Travel 12/30/2024 Telephone [facility] MEDICINE [address] [place], [place] [address] [address] Marybeth Reddy MD chartprep 12/23/2024 Patient Outreach [address] [address] Marybeth Reddy MD Pre-visit Planning (SDOH screening was completed on 06/24/2024) 12/15/2024 Refill [facility]INE [facility] [place] [address] Marybeth Reddy MD 12/09/2024 Results Follow-Up [address] [address] Arlet Maricsal CNM 21- Hydroxylase Antibody, POCT Urine 11/14/2024 11:00 AM EDT Office Visit [facility] [place] [address] Arlet Mariscal CNM Primary ovarian insufficiency (Primary Dx); Breast cancer screening by mammogram 11/14/2024 Travel 11/13/[address] [address] Marybeth Reddy MD chartprep 11/04/[address] [address] Arlet Mariscal CNM 10/31/2024 Refill [facility] MEDICINE [address] [place] [address] Arlet Mariscal CNM 10/23/[address] [address] Arlet Mariscal CNM chart prep 10/16/2024 Telephone [facility] WALK-IN CENTER [address] [place] [address] Korin Titus ARLETTE 09/30/2024 Refill [facility] MEDICINE [address] [place] [address] Marybeth Reddy MD from Last 3 Months Immunizations Immunization Administration [...] Mass Index 32.61 12/31/2024 2:21 PM EST Plan of Treatment Upcoming Encounters Date Type Department Care Team (Late st Contact Info) Description 03/14/2025 3:00 PM EST Office Visit [facility] OPTOMETRY [address] [place] [address] Devon, Miley, OD [address] [place] [address] Health Maintenance Due Date Last Done Comments HPV Vaccines (1 - 3-dose series) 06/18/1998 Hepatitis B Vaccines (1 of 3 - 19+ 3-dose series) 06/18/2002 COVID-19 Vaccine ( season) 2024 03/08/2021, 07/24/2020, 06/22/2020 Influenza Vaccine (#1) 2024 11/06/2020 Depression Screening 01/17/2025 01/18/2024, 01/18/20 24 Diabetes: Hemoglobin A1C 04/02/2025 025, 01/16/2024, 07/20/2023, Additional history exists Alcohol/Substance Use Screening 06/24/2025 06/24/2024 Disability Screening 06/24/2025 06/24/2024 SDOH Screening 06/24/2025 06/24/2024 Mammogram 07/24/2025 07/25/2023 Family Planning (PISQ) 08/15/2025 08/15/2024 Tobacco Screening 12/31/2025 12/31/2024 DTaP/Tdap/Td Vaccines (3 - Td or Tdap) 03/12/2029 03/12/2019, 08/25/2016 Cervical Cancer Screening 06/24/2029 HPV/Cotest 06/24/2029 06/24/2024, 05/0 06/2016, 05/03/2016 Pap Smear 06/24/2029 06/24/2024 Lipid Panel 12/31/2029 12/31/2024, 07/20/2023 Zoster Vaccines (1 of 2) 06/18/2033 RSV [...] 49) Years Aged Out No longer eligible based on patient's age to complete this topic RSV under 20 months Aged Out No longe r eligible based on patient's age to complete this topic Rotavirus Vaccines Aged Out No longer eligible based on patient's age to complete this topic Procedures Procedure Name Priority Date/Time Associated Diagnosis Comments ALBUMIN, RANDOM URINE W/CREATININE Routine 12/31/2024 3:02 PM EST Essential hypertension HEMOGLOBIN A1C Routine 12/31/2024 3:02 PM EST Prediabetes LIPID PANEL WITH REFLEX TO DIRECT LDL Routine 12/31/2024 3:02 PM EST Screening for lipid disorders COMPREHENSIVE METABOLIC PANEL Routine 12/31/2024 3:02 PM EST Essential hypertension Palpitation CBC WITH AUTO DIFFERENTIAL Routine 12/31/2024 3:02 PM EST Essential hypertension Palpitation ECG 12-LEAD Routine 12/31/2024 2:54 PM EST Chest pain, unspecified type AMB REFERRAL TO ENT Routine 12/08/2024 Tinnitus of left ear 21 HYDROXYLASE ANTIBODY Routine 11/28/2024 11:36 AM EDT Primary ovarian insufficiency POCT , URINE Routine 11/14/2024 11:35 AM EDT Primary ovarian insufficiency HPV DNA, LOW/HIGH RISK Routine 06/24/2024 10:43 AM EDT PAP SMEAR Routine 06/24/2024 10:43 AM EDT Cervical cancer screening BI MAMMOGRAM SCREENING TOMOSYNTHESIS BILATERAL Routine 07/25/2023 1:31 PM EDT Breast cancer screening by mammogram HEPATITIS C AB W/REFL TO HCV RNA, QN, PCR Routine 07/20/2023 9:59 AM EDT Routine general medical examination at a health care facility HIV 1/2 ANTIGEN/ANTIBODY, FOURTH GENERATION W/RFL Routine 07/20/2023 9:59 AM EDT Routine general medical examination at a health care facility from Last 3 Months or Most Recently Relevant to Health Maintenance Results * Lipid Panel with Reflex to Direct LDL (12/31/2024 3:02 PM EST) Triglycerides 126 <150 mg/dL [facility] Comment:Desirable Triglyceri de: less than 150 mg/dLBorderline High Triglyceride 150-199 mg/dLHigh Triglyceride: 200-499 mg/dLVery High Triglyceride: greater than or equal to 5OO mg/dL Cholesterol 166 <200 mg/dL [facility] Comment:Desirable Cholestero l: less than 200 mg/dLBorderline High Cholesterol: 200-239 mg/dLHigh Cholesterol: greater than 239 mg/dL LDL Cholesterol Calculated 90 <100 mg/dL [facility] Comment:Desirable LDL: less than 100 mg/dLNear Optimal/Above Optimal LDL: 110- 129 mg/dLBorderline High LDL: 130-159 mg/dLHigh LDL: 160-189 mg/dLVery High LDL: greater than or equal to 190 mg/dL HDL Cholesterol 51 >40 mg/dL [facility] Comment:Desirable HDL: great er than 40 mg/dL Note: This HDL assay may give artificially low results in patients with liver disease. Blood 12/31/2024 3:02 PM EST 12/31/2024 4:08 PM EST us Marybeth Reddy MD LAB BLOOD ORDERABLES Final Resul t Performing Organization Address [facility] de Phone Number [facility] [address] [place] [address] [phone] * Albumin, Random Urine W/Creatinine (12/31/2024 3:02 PM EST) Creatinine, Urine 147.45 mg/dL [facility] Microalbumin Urine 20.0 mg/L [facility] Microalbum Creatinine Ratio Ur 13.5 <30 ug/mg cr [facility] Comment:Albumin/Creatinine R atio Reference Ranges: Normal: < 30 ug/mg creatinine Microalbuminuria: 30 - 300 ug/mg creatinineClinical Albuminuria: > 300 ug/mg creatinine Urine 12/31/2024 3:02 PM EST 12/31/2024 3:59 PM EST us Marybeth Reddy MD LAB URINE ORDERABLES Final Resul t Performing Organization Address [facility] Co de Phone Number [facility] [address] [place] [address] [phone] * (ABNORMAL) CBC auto differential (12/31/2024 3:02 PM EST) White Blood Count 10.3 4.8 - 10.8 X10*3/uL [facility] Red Blood Count 5.09 4.20 - 5.50 X10*6/uL [facility] Hemoglobin 13.1 12.0 - 16.0 g/dl [facility] Hematocrit 41.6 37.0 - 47.0 % [facility] Mean Corpuscular Volume 81.7 80.0 - 98.0 fL [facility] Mean Corpuscular Hemoglobin 25.7(L) 27.0 - 33.0 pg [facility] Mean Corpuscular HGB Conc 31.5 31.0 - 35.0 g/dl [facility] Red Cell Distribution Width 13.8 11.0 - 16.0 % [facility] Platelet Count 304 160 - 400 X10*3/uL [facility] Mean Platelet Volume 11.3 9.4 - 12.3 fL [facility] Neutrophils Percent Auto 62.8 45 - 73 % [facility] Imm Gran Pct Auto 0.3 0.0 - 0.4 % [facility] Lymphocytes Percent Auto 27.3 20 - 40 % [facility] Monocytes Percent Auto 6.2 2 - 11 % [facility] Eosinophils Percent Auto 2.9 0 - 4 % [facility] Basophils Percent Auto 0.5 0 - 2 % [facility] NRBC Pct Auto 0.0 0.0 - 0.2 /100WBC [facility] Neutrophils Absolute Auto 6.5 2.0 - 8.3 x10*3/uL [facility] Imm Gran Abs Auto 0.03 0.00 - 0.03 X10*3/uL [facility] Lymphocytes Absolute Auto 2.8 1.2 - 4.9 X10*3/uL [facility] Monocytes Absolute Auto 0.6 0.1 - 1.2 X10*3/uL [facility] Eosinophils Absolute Auto 0.3 0.0 - 0.4 X10*3/uL [facility] Basophils Absolute Auto 0.1 0.0 - 0.2 X10*3/uL [facility] NRBC Abs Auto 0.000 0.0 - 0.012 X10*3/uL [facility] Blood Venous blood specimen / Unknown 12/31/2024 3:02 PM EST 12/31/2024 4:08 PM EST Marybeth Reddy MD LAB BLOOD ORDERABLES Final Resul t Performing Organization Address [facility] Co de Phone Number [facility] [address] [place] [phone] * Hemoglobin A1c (12/31/2024 3:02 PM EST) Hemoglobin A1c 5.8 <6.0 % [facility] Comment:Hemoglobin A1C Refer ence Range Adults: 4.8 - 6.0 % Non diabetic: < 6.0 % Goal: < 7.0 %Additional Action Suggested: > 8.0 %Note: Hemoglobin A1c results are invalid for patients with abnormal amounts of HbF. Blood transfusions may impact the HbA1c concentration in the patient sample. Estimated Average Glucose 120 mg/dL [facility] Comment:eAG = Estimated ave rage glucose which is %A1C expressed asaverage glucose, using the formula of the D8R-ClzpljpSjounsp Glucose study (ADAG), Diabetes Care, Vol.31,#8,Sep. 2007 Blood Venous blood specimen / Unknown 12/31/2024 3:02 PM EST 12/31/2024 4:08 PM EST Marybeth Reddy MD LAB BLOOD ORDERABLES Final Resul t Performing Organization Address [facility]/ZIP Co de Phone Number [facility] [address] [place] [phone] * (ABNORMAL) Comprehensive Metabolic Panel (12/31/2024 3:02 PM EST) Sodium 140 135 - 145 mmol/L [facility] Potassium 3.6 3.3 - 5.1 mmol/L [facility] Chloride 109(H) 96 - 108 mmol/L [facility] Carbon Dioxide 26 22 - 29 mmol/L [facility] Anion Gap 9(L) 12 - 20 [facility] Urea Nitrogen (BUN) 12 9 - 16 mg/dL [facility] Creatinine, Serum 0.60 0.5 - 1.4 mg/dL [facility] Estimated Glomerular Filt Rate >60 [facility] Comment:Chronic Kidney Disea se: Estimated GFR < 60 mL/min/1.30e8Xlcfqz Kidney Disease: Estimated GFR < 15 mL/min/1.73m2 Glucose 114 60 - 115 mg/dL [facility] Calcium 8.8 8.4 - 10.2 mg/dL [facility] Bilirubin, Total 0.1 0.0 - 1.0 mg/dL [facility] Aspartate Amino Transferase 18 5 - 31 U/L [facility] Alanine Aminotransferase 20 0 - 31 U/L [facility] Total Protein 7.9 6.5 - 8.0 g/dL [facility] Albumin Level 4.4 3.5 - 5.0 g/dL [facility] Alkaline Phosphatase 71 39 - 117 U/L [facility] Blood Venous blood specimen / Unknown 12/31/2024 3:02 PM EST 12/31/2024 4:08 PM EST Marybeth Reddy MD LAB BLOOD ORDERABLES Final Resul t [facility] [address] [place] [address] [phone] * ECG 12 lead (12/31/2024 2:54 PM EST) Narrative Marybeth Reddy MD - 12/31/2024 2:54 PM EST Rate 80, sinus rhythm, PR138 ms, QRS narrow, QTc 423 ms, normal axis, no acute ischemic ST-T changes, no hypertrophy. Marybeth Reddy MD ECG ORDERABLES Final Result * Referral to ENT (12/08/2024) Marybeth Reddy MD OUTPATIENT REFERRAL ORDERABLES F inal Result * 21- Hydroxylase Antibody (11/28/2024 11:36 AM EDT) 21 Hydroxylase Ab NEGATIVE NEGATIVE [facility] Comment:THIS TEST WAS PERFOR MED AT:[email or web address] [id number] [place] [address]HNKPSDANELEL SCHERER MD,PHD,BERTRAND Blood 11/28/2024 11:3 6 AM EDT 11/28/2024 11:36 AM EDT Arlet Mariscal [facility] LAB BLOOD ORDERABLES Merlyn l Result [facility] [address] [place] [phone] * POCT Urine (11/14/2024 11:35 AM EDT) Pathologist [facility] Preg Test, Ur Negative Negative, Indeterminate, None Detected, Invalid, Specimen unsatisfactory for evaluation, Weakly Positive, 2+ QC Media Lot # [id number] Lot# Expiration Date [id number] Urine 11/14/2024 11:3 5 AM EDT [facility] POINT OF CARE TEST ENTER/ EDIT ORDERABLES Final Result * HPV DNA, Low/High Risk (06/24/2024 10:43 AM EDT) [facility] HPV High Risk Negative Negative [facility] HPV Genotype 16 Negative Negative [facility] HPV Genotype 18 Negative Negative [facility] Comment:HPV testing performe d at [facility] (CLIA#[id number]), [address] [place] [address].Testing for HPV was performed using the Bird [...] 3 AM EDT 06/25/2024 10:51 AM EDT us Arlet Mariscal CNM LAB BLOOD ORDERABLES Merlyn miko Result [facility] [address] [place] [phone] * Pap Smear (06/24/2024 10:43 AM EDT) Swab Cervix uteri structure / Unknown 06/24/2024 10:43 AM EDT 06/25/2024 10:51 AM EDT Narrative [facility] - 06/27/2024 10:14 AM EDT ----- ------- Name: Troy RamiresLuann Age/Sex: 39/F : 1985 Unit#: [id number] Attend Dr: ARLET MARISCAL CNM Re06/24/24 Status: DEP REF Location: HO.HHCLNP Disch: ----- ------- SPEC : [id number] RECD: 06/25/24 STATUS: YINKA MCCANN NUM: [id number] IRVIN: 06/24/24-[address] [facility] [address]: ARLET MARISCAL CNM ENTERED: 06/25/24 SP [...] 1014 ----- ------- END OF REPORT Arlet Mariscal CNM LAB CYTOLOGY ORDERABLES F inal Result [facility] [address] [place] [phone] * BI Mammogram Screening Tomosynthesis Bilateral (07/25/2023 1:31 PM EDT) Anatomical Region Laterality Modality Breast Bilateral Mammography 07/25/2023 1:31 PM EDT Narrative 08/24/2023 3:16 PM EDT [facility] [address] [place] [address] [place] [address] Mammography Report Signed Patient: Luann Zeng MR#: [id number] : 1985 Acct:[id number] Age/Sex: 38 / F ADM Date: 07/25/23 Loc: MADDI Attending Dr: Marybeth Reddy MD Ordering Physician: Marybeth Reddy MD Results: 1Negative Date of Service: 07/25/23 Follow Up: 1 Year From Orig ina Mammogram Procedure(s): MM tomosynthesis screening BI Accession Number(s): [id number] cc: Marybeth Reddy MD EXAMINATION: MM SCREENING [...] in OV> 08/24/23 1513 DD/ 1331 TD/TT: Spray Blender: Procedure Note Donotuseinterpreter, Image - 08/24/2023 [facility] [address] [place] [address] Mammography Report Signed Patient: Luann ZengMR#: [id number] : 1985Acct:[id number] Age/Sex: 38 / FADM Date: 07/25/23 Loc: HO.MAMMO Attending Dr: Marybeth Reddy MD Ordering Physician: Marybeth Reddy MDResults: 1Negative Date of Service: 07/25/23Follow Up: 1 Year From Orig ina Mammogram Procedure(s): MM tomosynthesis screening BI Accession Number(s): [id number] cc: Marybeth Reddy MD EXAMINATION: MM SCREENING [...] in OV> 08/24/23 1513 DD/ 1331 TD/TT: Spray Blender: Marybeth Reddy MD IMG BI PROCEDURES Final Result * Hepatitis C Antibody with Reflex to HCV, RNA, Quantitative, Real-Time PCR (07/20/2023 9:59 AM EDT) Hepatitis C Antibody Nonreactive Nonreactive [facility] Comment:Antibodies to HCV no t detected; does not exclude early acuteHCV infection. Blood Venous blood specimen / Unknown 07/20/2023 9:59 AM EDT 07/20/2023 11:49 AM EDT Marybeth Reddy MD LAB BLOOD ORDERABLES Final Resul t Performing Organization Address City[facility]/ZIP Co de Phone Number [facility] [address] [place] [phone] * HIV-1/2 Antigen and Antibodies, Fourth Generation, with Reflexes (07/20/2023 9:59 AM EDT) HIV AB/AG Nonreactive Nonreactive [facility] Comment:HIV-1 p24 Ag and/or HIV-1/HIV-2 Ab not detected.A test result that is nonreactive does not exclude thepossibility of exposure to or infection with HIV-1 and/orHIV-2. Nonreactive results in this assay for individualswith prior exposure to HIV-1 and/or HIV-2 may be due toantigen and antibody levels that are below the limit ofdetection of this assay.The hCentive HIV Ag/Ab Combo assay result andsupplemental assay results should be interpreted inconjunction with the patient's clinical presentation,history and other laboratory results. If the results areinconsistent with clinical evidence, additional testing issuggested to confirm the result. Blood Venous blood specimen / Unknown 07/20/2023 9:59 AM EDT 07/20/2023 11:49 AM EDT us Marybeth Reddy MD LAB BLOOD ORDERABLES Final Resul t Performing Organization Address [facility]/ZIP Co de Phone Number [facility] [address] [place] [phone] [phone] from Last 3 Months or Most Recently Relevant to Health Maintenance Insurance [facility] C3 Care Teams Banking Officer Relationship Specialty Start Date End Date Marybeth Reddy MD [address] [place] [phone] PCP - General Family Medicine 07/20/23
--- OUTSIDE RECORDS SUMMARY | 2024-12-31 18:42 | XMS_ITS | Encounter Summary ---
Author Organization [employer] [facility] Address [address] [place] [address] Care Team Providers Care Collet Gluer Name Role Phone Marybeth Reddy MD Primary Care Provider [phone] Reason for Visit * Reason Onset Date Comments New Patient 11/29/2022 Encounter Details Date Type Department Care Team (Late st Contact Info) Description 11/29/2022 Telephone [facility] MEDICINE [address] [place], [place] [phone] Antwan Hastings MD [address] [place], [place] [phone] New Patient Social History Tobacco Use Types [...] we do take insurance, but must call [facility] to change location. Once done, to please call back to facility at [phone] documented in this encounter Plan of Treatment Upcoming Encounters Date Type Department Care Team (Late st Contact Info) Description 03/14/2025 3:00 PM EST Office Visit [facility] OPTOMETRY [address] [place], [place] [phone] Miley Osorio OD [address] [place] [address] documented as of this encounter Visit Diagnoses Not on filedocumented in this encounter Care Teams Collet Gluer Relationship Specialty Start Date End Date Marybeth Reddy MD [address] [place] [address] PCP - General Family Medicine 07/20/23 documented as of this encounter
--- OUTSIDE RECORDS SUMMARY | 2024-12-31 18:42 | XMS_ITS | Encounter Summary ---
Author Organization [employer] Address [address] [place] [address] Care Team Providers Care Phototypesetter Operator Name Role Phone Marybeth Reddy MD Primary Care Provider [phone] Reason for Visit * Reason Comments Med Refill Encounter Details Date Type Department Care Team (Late st Contact Info) Description 10/31/2024 Refill [facility] MEDICINE [address] [place], [place] [phone] Rachelle Mina CNM [address] [place], [place] [phone] Social History Tobacco Use Types Packs/Day Years [...] t he electric, gas, oil or water [employer] threatened to shut off services in your [...] Description 03/14/2025 3:00 PM EST Office Visit [facility] OPTOMETRY [address] [place] [address] Devon, Miley, OD [address] [place] [address] documented as of this encounter Visit Diagnoses Not on filedocumented in this encounter Additional Health Concerns Assessment Noted Time PHQ-9 Depression Total Score: 3 01/18/20 24 10:03 AM EST documented as of this encounter Care Teams Phototypesetter Operator Relationship Specialty Start Date End Date Marybeth Reddy MD [address] [place] [address] PCP - General Family Medicine 07/20/23 documented as of this encounter
--- OUTSIDE RECORDS SUMMARY | 2024-12-31 18:42 | XMS_ITS | Encounter Summary ---
Author Organization [employer] Address [address] [place] [address] Care Team Providers Care Occupational Medicine Officer Name Role Phone Marybeth Reddy MD Primary Care Provider [phone] Encounter Details Date Type Department Care Team (Latest Contact Info) Description 12/31/2024 Travel Social History Tobacco Use Types Packs/Day [...] Description 03/14/2025 3:00 PM EST Office Visit [facility] OPTOMETRY [address] [place], [place] [phone] Devon, Miley, OD [address] [place] [address] documented as of this encounter Visit Diagnoses Not on filedocumented in this encounter Additional Health Concerns Assessment Noted Time PHQ-9 Depression Total Score: 3 01/18/20 24 10:03 AM EST documented as of this encounter Care Teams Occupational Medicine Officer Relationship Specialty Start Date End Date Marybeth Reddy MD [address] [place] [address] PCP - General Family Medicine 07/20/23 documented as of this encounter
== END 2024-12-31 14:56 | disposition home or self-care (01) ==
LOC: HO.HHCL 14:55
PROVIDERS: PCP Family Medicine; Visit Provider Family Medicine
DX: I10 Essential (primary) hypertension (principal); R00.2 Palpitations; R73.03 Prediabetes; Z13.220 Encounter for screening for lipoid disorders
CPT/HCPCS: 36415; 80053; 80061; 82043; 82570; 83036; 85025

== ENCOUNTER → 2025-01-16 14:17 | Outpatient (REF) | payer MEDICAID, SELFPAY ==
--- OUTSIDE RECORDS SUMMARY | 2025-01-16 21:48 | XMS_ITS | Clinical Summary ---
Author Organization [facility] Address [address] [place] [address] Phone Care Team Providers Care News Photographer Name Role Phone Physician, No Pcp Primary [...] Orientation Straight 01/08/2024 2: 53 PM EST Last Filed Vital Signs Vital Sign Reading [...] topic Insurance MEDICAID - [place] Care Teams News Photographer Relationship Specialty Start Date End Date Physician, No Pcp PCP - General 01/08/24
--- OUTSIDE RECORDS SUMMARY | 2025-01-16 21:48 | XMS_ITS | Clinical Summary ---
Author Organization [employer] Address [address] [facility] [address] [place] [address] Care Team Providers Care Asset Management Coordinator Name Role Phone Marybeth Reddy MD Primary Care Provider [phone] Allergies No known active allergies Medications acetaminophen (Tylenol) 500 MG tablet Take 2 tablets (1,000 mg) by mouth every 6 (six) hours if needed for moderate pain or fever. 40 tablet 4 Active hydrocortisone 2.5 % cream Apply to affected area once daily as needed. Apply thin layer 28 g 3 4 Active pantoprazole (ProtoNix) 40 MG EC tablet TAKE 1 TABLET BY MOUTH EVERY DAY BEFORE BREAKFAST 90 tablet 3 5 Active cromolyn (Opticrom) 4 % ophthalmic solution INSTILL 1 DROP IN THE AFFECTED EYE 4 TIMES A DAY IN THE MORNING, AT NOON, IN THE EVENING, AND AT BEDTIME IF NEEDED FOR REDNESS & FOR ITCHING 10 mL 2 5 Active progesterone (Prometrium) 100 MG capsule Take 1 capsule (100 mg) by mouth Once per day for 180 doses. 30 capsule 5 5 05/14/19 26 Active estradiol (Climara) 0.1 MG/24HR Place 1 patch on the skin 1 (one) time per week. 4 patch 5 5 Active amLODIPine (Norvasc) 10 MG tablet TAKE 1 TABLET BY MOUTH EVERY DAY 90 tablet 1 5 Active dextran 70-hypromellose (artificial tears) 0.1-0.3 % ophthalmic solution Administer 1 drop into both eyes if needed in the morning, at noon, and at bedtime for dry eyes. 15 mL 1 4 01/16/20 25 Active Problems Problem Noted Date Diagnosed Date Palpitation 01/05/2025 Assessment & Plan (01/05/2025 5:03 AM EST): - EKG showed normal sinus rhythm today - Consider evaluating with sleep study (patient does not report any sleeping disorder) - Will evaluate with Holter monitor Chest pain 01/05/2025 Assessment & Plan (01/05/2025 5:24 AM EST): - EKG within normal limits today - optimize treatment for GERD - consider referring for stress test Visual changes 01/05/2025 Assessment & Plan (01/05/2025 5:23 AM EST): - transient color blindness? DDx: ocular migraine; transient optic neuritis; MS - Upcoming appointment with [facility] Eye care - will evaluate with MRI Primary ovarian insufficiency 08/15/2024 Assessment & Plan (01/05/2025 4:58 AM EST): - Continue estradiol and progesterone Dry eye 01/17/2024 Cyst of skin 01/16/2024 Assessment & Plan (01/16/2024 10:58 AM EST): - referred to general surgery 01/16/24 Other conjunctivitis 01/16/2024 Assessment & Plan (01/16/2024 11:01 AM EST): Likely allergic. - continue lubricant. - prescribed Cromolyn eye drops. - referred to [facility] 01/16/24 Tinnitus of left ear 07/20/2023 Assessment & Plan (01/05/2025 5:05 AM EST): - Evaluated by ENT, last seen on 12/06/2024 - Normal hearing except very mild sensorineural hearing loss at 8000 Hz on the left - Recommended hearing protection and avoid exacerbating factors - Follow-up in 1 year Assessment & Plan (07/20/2023 9:54 AM EDT): -no sign of infection -will refer to ENT Eczema 11/24/2022 Assessment & Plan (07/21/2023 10:11 [...] & Plan: Continue omeprazole Assessment & Plan (01/05/2025 4:57 AM EST): -continue Pantoprazole as prescribed -consider checking H. Pylori if symptoms worsen. -consider referring to GI for EGD if symptoms worsen. Assessment & Plan (01/16/2024 6:19 AM EST): -continue Pantoprazole as prescribed -consider checking H. Pylori if symptoms worsen. -consider referring to GI for EGD if symptoms worsen. Assessment & Plan (07/20/2023 9:53 AM EDT): -continue Pantoprazole as prescribed -consider taking H. Pylori if symptoms worsen. -consider referring to GI for EGD if symptoms worsen. Essential hypertension 11/20/2018 3 Overview (11/24/2022): Dx - pt noted elevated [...] 140/90 -to resume amlodipine today -request for [employer] apt to start care -advised to monitor BP at home Headache 11/20/2018 11/24/2022 Overview (11/24/2022): Started on amitriptyline in 2016 Assessment & Plan (01/05/2025 5:01 AM EST): Differential diagnosis: Tension; migraine; intracranial hypertension; LIAT Continue stress reduction technique Previously on amitriptyline Currently not on any prophylactic medications Prediabetes 09/18/2018 11/24/2022 Overview (11/24/2022): Last Assessment & Plan: Recheck A1c in August Assessment & Plan (01/05/2025 4:54 AM EST): - A1c 6.2 in July 2023 - A1c 6.0 01/16/2024 - A1c 5.8% on 12/31/2024, improving -continue lifestyle modification Assessment & Plan (01/16/2024 10:40 AM EST): - A1c 6.2 in July 2023 - A1c 6.0 01/16/2024 -continue lifestyle modification Assessment & Plan (07/20/2023 9:53 AM EDT): -A1c 6.2 today -continue lifestyle modification Obesity 09/04/2018 11/24/2022 Overview (11/24/2022): Last Assessment & Plan: A1c Assessment & Plan (01/05/2025 4:55 AM EST): - Continue working on lifestyle modifications Resolved Problems Problem Noted Date Diagnosed Date Resolved Date Amenorrhea 01/16/2024 08/15/2024 Assessment & Plan (01/16/2024 10:42 AM EST): Reports having her period for 6 moths and then not having it for a long time. This has been happening for years. - will schedule for PAP smear Pain in finger of right hand 01/16/2024 01/05/2025 Assessment & Plan (01/16/2024 11:00 AM EST): Pain to 5th finger, likely arthritis. No injury. - recommended OTC analgesics. - consider x-ray if worsening symptoms. Encounter for screening mamm ogram for malignant neoplasm of breast 07/20/2023 07/21/2023 Generalized abdominal pain 07/20/2023 1 03/07/2024 Anxiety 09/04/2018 11/24/2022 01/05/2025 Overview (11/24/2022): Last Assessment & Plan: Referral to [facility]. Discussed that it will take some follow-up to be able to communicate helpfully about any disability caused by her medical conditions. Encounters Date Type Department Care Team Description 01/01/2025 Results Follow-Up [facility] [address] [place] [address] Marybeth Reddy MD CBC auto differential, Comprehensive Metabolic Panel, Lipid Panel with Reflex to Direct LDL, Additional followed-up results: 2 12/31/2024 2:15 PM EST Office Visit [facility] [place] [address] Marybeth Reddy MD Essential hypertension (Primary Dx); Prediabetes; Dietary counseling; Exercise counseling; Class 1 obesity due to excess calories with serious comorbidity and body mass index (BMI) of 32.0 to 32.9 in adult; Chest pain, unspecified type; Palpitation; Screening for lipid disorders; Gastroesophageal reflux disease without esophagitis; Primary ovarian insufficiency; Nonintractable episodic headache, unspecified headache type; Tinnitus of left ear; Visual changes; Optic neuritis 12/31/2024 Travel 12/30/2024 Telephone [facility] [place] [address] Marybeth Reddy MD chartprep 12/23/2024 Patient Outreach [facility] [place] [address] Marybeth Reddy MD Pre-visit Planning ([facility] screening was completed on 06/24/2024) 12/15/2024 Refill [facility] [place] [address] Marybeth Reddy MD 12/09/2024 Results Follow-Up [facility] [place] [address] Arlet Mariscal CNM 21- Hydroxylase Antibody, POCT Urine 11/14/2024 11:00 AM EDT Office Visit [facility] [place] [address] Arlet Maricsal CNM Primary ovarian insufficiency (Primary Dx); Breast cancer screening by mammogram 11/14/2024 Travel 11/13/2024 Telephone [facility] [place] [address] Marybeth Reddy MD chartprep 11/04/[address] [address] Arlet Mariscal CNM 10/31/[address] [address] Arlet Mariscal CNM 10/23/[address] [address] Arlet Mariscal CNM chart prep from Last 3 Months Immunizations Immunization Administration [...] is your housing situation today? I have natemanish hayden 07/10/[address] you [...] Description 03/14/2025 3:00 PM EST Office Visit [facility] [address] [place] [address] Devon, Miley, OD [address] [place] [address] Health Maintenance Due Date Last Done Comments [...] 3:02 PM EST) Triglycerides 126 <150 mg/dL [facility] Comment:Desirable Triglyceri de: less than 150 mg/dLBorderline High Triglyceride 150-199 mg/dLHigh Triglyceride: 200-499 mg/dLVery High Triglyceride: greater than or equal to 5OO mg/dL Cholesterol 166 <200 mg/dL [facility] Comment:Desirable Cholestero l: less than 200 mg/dLBorderline High Cholesterol: 200-239 mg/dLHigh Cholesterol: greater than 239 mg/dL LDL Cholesterol Calculated 90 <100 mg/dL [facility] Comment:Desirable LDL: less than 100 mg/dLNear Optimal/Above Optimal LDL: 110- 129 mg/dLBorderline High LDL: 130-159 mg/dLHigh LDL: 160-189 mg/dLVery High LDL: greater than or equal to 190 mg/dL HDL Cholesterol 51 >40 mg/dL [facility] Comment:Desirable HDL: grea ter than 40 mg/dL Note: This HDL assay may give artificially low results in patients with liver disease. Blood 12/31/2024 3:02 PM EST 12/31/2024 4:08 PM EST Marybeth Reddy MD LAB BLOOD ORDERABLES Final Resul t Performing Organization Address [facility] de Phone Number [facility] [address] [place] [phone] * Albumin, Random Urine W/Creatinine (12/31/2024 3:02 PM EST) Creatinine, Urine 147.45 mg/dL [facility] Microalbumin Urine 20.0 mg/L [facility] Microalbum Creatinine Ratio Ur 13.5 <30 ug/mg cr [facility] Comment:Albumin/Creatinine R atio Reference Ranges: Normal: < 30 ug/mg creatinine Microalbuminuria: 30 - 300 ug/mg creatinineClinical Albuminuria: > 300 ug/mg creatinine Urine 12/31/2024 3:02 PM EST 12/31/2024 3:59 PM EST Marybeth Reddy MD LAB URINE ORDERABLES Final Resul t Performing Organization Address [facility] Co de Phone Number [facility] [address] [place] [phone] * (ABNORMAL) CBC auto differential (12/31/2024 3:02 PM EST) White Blood Count 10.3 4.8 - 10.8 X10*3/uL [facility] Red Blood Count 5.09 4.20 - 5.50 X10*6/uL [facility] Hemoglobin 13.1 12.0 - 16.0 g/dl [facility] Hematocrit 41.6 37.0 - 47.0 % [facility] Mean Corpuscular Volume 81.7 80.0 - 98.0 fL [facility] Mean Corpuscular Hemoglobin 25.7(L) 27.0 - 33.0 pg [facility] Mean Corpuscular HGB Conc 31.5 31.0 - 35.0 g/dl [facility] Red Cell Distribution Width 13.8 11.0 - 16.0 % [facility] Platelet Count 304 160 - 400 X10*3/uL [facility] Mean Platelet Volume 11.3 9.4 - 12.3 fL [facility] Neutrophils Percent Auto 62.8 45 - 73 % [facility] Imm Gran Pct Auto 0.3 0.0 - 0.4 % [facility] Lymphocytes Percent Auto 27.3 20 - 40 % [facility] Monocytes Percent Auto 6.2 2 - 11 % [facility] Eosinophils Percent Auto 2.9 0 - 4 % [facility] Basophils Percent Auto 0.5 0 - 2 % [facility] NRBC Pct Auto 0.0 0.0 - 0.2 /100WBC [facility] Neutrophils Absolute Auto 6.5 2.0 - 8.3 x10*3/uL [facility] Imm Gran Abs Auto 0.03 0.00 - 0.03 X10*3/uL [facility] Lymphocytes Absolute Auto 2.8 1.2 - 4.9 X10*3/uL [facility] Monocytes Absolute Auto 0.6 0.1 - 1.2 X10*3/uL [facility] Eosinophils Absolute Auto 0.3 0.0 - 0.4 X10*3/uL [facility] Basophils Absolute Auto 0.1 0.0 - 0.2 X10*3/uL [facility] NRBC Abs Auto 0.000 0.0 - 0.012 X10*3/uL [facility] Blood Venous blood specimen / Unknown 12/31/2024 3:02 PM EST 12/31/2024 4:08 PM EST Marybeth Reddy MD LAB BLOOD ORDERABLES Final Resul t Performing Organization Address [facility] Co de Phone Number [facility] [address] [place] [phone] * Hemoglobin A1c (12/31/2024 3:02 PM EST) Hemoglobin A1c 5.8 <6.0 % [facility] Comment:Hemoglobin A1C Refer ence Range Adults: 4.8 - 6.0 % Non diabetic: < 6.0 % Goal: < 7.0 %Additional Action Suggested: > 8.0 %Note: Hemoglobin A1c results are invalid for patients with abnormal amounts of HbF. Blood transfusions may impact the HbA1c concentration in the patient sample. Estimated Average Glucose 120 mg/dL [facility] Comment:eAG = Estimated ave rage glucose which is %A1C expressed asaverage glucose, using the formula of the Z0L-AwaeizfYaodcdm Glucose study (ADAG), Diabetes Care, Vol.31,#8,Sep. 2007 Blood Venous blood specimen / Unknown 12/31/2024 3:02 PM EST 12/31/2024 4:08 PM EST us Marybeth Reddy MD LAB BLOOD ORDERABLES Final Resul t Performing Organization Address [facility] Co de Phone Number [facility] [address] [place] [phone] * (ABNORMAL) Comprehensive Metabolic Panel (12/31/2024 3:02 PM EST) Sodium 140 135 - 145 mmol/L [facility] Potassium 3.6 3.3 - 5.1 mmol/L [facility] Chloride 109(H) 96 - 108 mmol/L [facility] Carbon Dioxide 26 22 - 29 mmol/L [facility] Anion Gap 9(L) 12 - 20 [facility] Urea Nitrogen (BUN) 12 9 - 16 mg/dL [facility] Creatinine, Serum 0.60 0.5 - 1.4 mg/dL [facility] Estimated Glomerular Filt Rate >60 [facility] Comment:Chronic Kidney Disea se: Estimated GFR < 60 mL/min/1.21g5Fsruiv Kidney Disease: Estimated GFR < 15 mL/min/1.73m2 Glucose 114 60 - 115 mg/dL [facility] Calcium 8.8 8.4 - 10.2 mg/dL [facility] Bilirubin, Total 0.1 0.0 - 1.0 mg/dL [facility] Aspartate Amino Transferase 18 5 - 31 U/L [facility] Alanine Aminotransferase 20 0 - 31 U/L [facility] Total Protein 7.9 6.5 - 8.0 g/dL [facility] Albumin Level 4.4 3.5 - 5.0 g/dL [facility] Alkaline Phosphatase 71 39 - 117 U/L [facility] Blood Venous blood specimen / Unknown 12/31/2024 3:02 PM EST 12/31/2024 4:08 PM EST Marybeth Reddy MD LAB BLOOD ORDERABLES Final Resul t [facility] [address] [place] [phone] * ECG 12 lead (12/31/2024 2:54 [...] AM EDT) 21 Hydroxylase Ab NEGATIVE NEGATIVE [facility] Comment:THIS TEST WAS PERFOR MED AT:[employer] [id number] [place] [address]DPCVIDANELLE SCHERER MD,PHD,BERTRAND Blood 11/28/2024 11:3 6 AM EDT 11/28/2024 11:36 AM EDT Arlet SOLIZ LAB BLOOD ORDERABLES Merlyn l Result [facility] [address] [place] [phone] * POCT Urine (11/14/2024 11:35 AM EDT) Preg Test, Ur Negative Negative, Indeterminate, None Detected, Invalid, Specimen unsatisfactory for evaluation, Weakly Positive, 2+ QC Media Lot # [id number] Lot# Expiration Date [id number] Urine 11/14/2024 11:3 5 AM EDT Arlet Mariscal [facility] TEST ENTER/ EDIT ORDERABLES Final Result * HPV DNA, Low/High Risk (06/24/2024 10:43 AM EDT) Pathologist [facility] HPV High Risk Negative Negative [facility] HPV Genotype 16 Negative Negative [facility] HPV Genotype 18 Negative Negative [facility] Comment:HPV testing performe d at [facility] (CLIA#[id number]), [address] [place] [address].Testing for HPV was performed using the Bird [...] AM EDT 06/25/2024 10:51 AM EDT Arlet Mariscal CNM LAB BLOOD ORDERABLES Merlyn crouch Result [facility] [address] [place] [phone] * Pap Smear (06/24/2024 10:43 AM EDT) Swab Cervix uteri structure / Unknown 06/24/2024 10:43 AM EDT 06/25/2024 10:51 AM EDT Narrative [facility] - 06/27/2024 10:14 AM EDT ----- ------- Name: Luann Zeng Age/Sex: 39/F : 1985 Unit#: [id number] Attend Dr: ARLET MARISCAL CNM Re06/24/24 Status: YEE REF Location: HO.HHCLNP Disch: ----- ------- SPEC : [id number] RECD: 06/25/24-105 STATUS: YINKA MCCANN NUM: [id number] IRVIN: 06/24/24-[address] [facility] [address]: ARLET MARISCAL CNM ENTERED: 06/25/24-1052 SP TYPE: Pap Smr OTHR DR: ORDERED: [...] CNM LAB CYTOLOGY ORDERABLES F inal Result [facility] [address] [place] [phone] * BI Mammogram Screening Tomosynthesis Bilateral (07/25/2023 1:31 PM EDT) Anatomical Region Laterality Modality Breast Bilateral Mammography 07/25/2023 1:31 PM EDT Narrative 08/24/2023 3:16 PM EDT [facility] [address] [place] [address] [place] [address] Mammography Report Signed Patient: Luann Zeng MR#: [id number] : 1985 Acct:[id number] Age/Sex: 38 / F ADM Date: 07/25/23 Loc: MADDI Attending Dr: Marybeth Reddy MD Ordering Physician: Marybeth Reddy MD Results: 1Negative Date of Service: 07/25/23 Follow Up: 1 Year From [facility] Mammogram Procedure(s): MM tomosynthesis screening BI Accession Number(s): [id number] cc: Marybeth Reddy MD EXAMINATION: MM SCREENING [...] in OV> 08/24/23 1513 DD/ 1331 TD/TT: Correction Worker: Procedure Note Donotuseinterpreter, Image - 08/24/2023 Jacqui [facility] [address] [place] [address] Mammography Report Signed Patient: Luann ZengMR#: [id number] : 1985Acct:[id number] Age/Sex: 38 / FADM Date: 07/25/23 Loc: MADDI Attending Dr: Marybeth Reddy MD Ordering Physician: Marybeth Reddy MDResults: 1Negative Date of Service: 07/25/23Follow Up: 1 Year From Orig ina Mammogram Procedure(s): MM tomosynthesis screening BI Accession Number(s): [id number] cc: Marybeth Reddy MD EXAMINATION: MM SCREENING [...] in OV> 08/24/23 1513 DD/ 1331 TD/TT: Correction Worker: Marybeth Reddy MD IMG BI PROCEDURES Final Result * Hepatitis C Antibody with Reflex to HCV, RNA, Quantitative, Real-Time PCR (07/20/2023 9:59 AM EDT) Hepatitis C Antibody Nonreactive Nonreactive [facility] Comment:Antibodies to HCV no t detected; does not exclude early acuteHCV infection. Blood Venous blood specimen / Unknown 07/20/2023 9:59 AM EDT 07/20/2023 11:49 AM EDT Marybeth Reddy MD LAB BLOOD ORDERABLES Final Resul t [facility] [address] [place] [phone] * HIV-1/2 Antigen and Antibodies, Fourth Generation, with Reflexes (07/20/2023 9:59 AM EDT) HIV AB/AG Nonreactive Nonreactive [facility] Comment:HIV-1 p24 Ag and/or HIV-1/HIV-2 Ab not detected.A test result that is nonreactive does not exclude thepossibility of exposure to or infection with HIV-1 and/orHIV-2. Nonreactive results in this assay for individualswith prior exposure to HIV-1 and/or HIV-2 may be due toantigen and antibody levels that are below the limit ofdetection of this assay.The [employer] HIV Ag/Ab Combo assay result andsupplemental assay results should be interpreted inconjunction with the patient's clinical presentation,history and other laboratory results. If the results areinconsistent with clinical evidence, additional testing issuggested to confirm the result. Blood Venous blood specimen / Unknown 07/20/2023 9:59 AM EDT 07/20/2023 11:49 AM EDT us Marybeth Reddy MD LAB BLOOD ORDERABLES Final Resul t [facility] [address] [place] [phone] from Last 3 Months or Most Recently Relevant to Health Maintenance Insurance [employer] C3 Care Teams Asset Management Coordinator Relationship Specialty Start Date End Date Marybeth Reddy MD [address] [place] [phone] PCP - General Family Medicine 07/20/23
--- OUTSIDE RECORDS SUMMARY | 2025-01-16 21:48 | XMS_ITS | Data Portability ---
Author Organization [place] - [facility], All[facility] Address [address] [address] Care Team Providers Care Powerhouse Operator Name Role Phone ORI PRECIADO Primary Care Provider Assessment Encounter Date Assessment Date Assessment LastModified by Organization Details LastModified Time 12/06/2024 12/06/2024 39 year old Yakut speaking female presents for evaluation of left-sided [...] Details Recorded Time Tinnitus of left ear 4704134807806 Active 2024 JEFFREY SALEEM [address] [facility], [place], [phone], [facility] 18:02:21 Problem Notes None recorded. Procedures Surgical History Date Name Laterality Status Provider Name and Address Organization Details Recorded Time 12/06/2024 Air & Speech Audio with Tymps - 72216, 73770 & 60995 completed REYNA SEBASTIAN [address] [facility] [address], [place], [phone], [facility] 12/06/2024 10:51:57 Imaging Results None recorded. [...] Updated DateTime 12/06/2024 154.94 cm 30.8 kg/m2 32864.56 g Xuan Cabanury [facility] 12/06/2024 11:16:25 Social History None recorded. Functional Status None recorded. Mental Status None recorded. Family History Nothing Reported. Medical History No medical history recorded. Gynecological HistoryNo gynecological history recorded. Obstetrics History GPAL:G 0 P 0 0 0 0 Past Encounters Encounter ID Performer Location Encounter Start Date Encounter Closed Date Diagnosis/Indication Diagnosis SNOMED-CT Code Diagnosis ICD10 Code Diagnosis IMO Codes Diagnosis Note [id number] JEFFREY SALEEM [facility] [address] [address] 12/06/2024 10:28:09 12/06/2024 15:42:13 Tinnitus of left ear 8619200712 106 H93.12 [id number] Right Ear:Normal hearing with excellent speech discrimina tion.Type A tympanogra m.Left Ear:Normal hearing with excellent speech discrimina tion.Type A tympanogra m. Family his tory of hearing loss [id number] Z82.2 [id number] Health Concerns Section Related Observation LastModified by Organization Detai ls LastModified Time None Recorded Concern Status LastModified by Organization Details LastModified Time None Recorded Advance Directives Directive None Recorded Payers Insurance Date Sequence Insurance Name Policy Number Policy Gee Covered Member ID Gee Member ID Guarantor Name 12/16/2024 1 [place] [facility] Luann Simmons [id number] Luann Ramires Notes Date Note Type Note Provider Name and Address Organization Details Recorded Time 12/06/2024 text/html ROS as noted in the HPI 39 year old Yakut speaking female presents for evaluation of left-sided tinnitus. Patient reports onset began a year ago, described as a mild beeping sound. She states her hearing is good. Denies otalgia, otorrhea, and dizziness. No personal history of loud exposure. Father was previously diagnosed with hearing loss and tinnitus. No prior ear infections or surgeries. Jorge Aquino, [address],[place] [address], [place], [phone], [facility] - [facility] 12/09/2024 09:22:41 OBGyn Episode No OBEpisode recorded.
--- OUTSIDE RECORDS SUMMARY | 2025-01-16 21:48 | XMS_ITS | Encounter Summary ---
Author Organization [facility] Address [address] [facility] 7t [place] [address] Care Team Providers Care Linux Kernel Developer Name Role Phone Marybeth Reddy MD Primary Care Provider [phone] Reason for Visit * Reason Onset Date Comments New Patient 11/29/2022 Encounter Details Date Type Department Care Team (Late st Contact Info) Description 11/29/2022 Telephone [facility] MEDICINE [address] [place], [place] [phone] Antwan Hastings MD [address] [place], [place] [phone] New Patient Social History Tobacco Use Types [...] we do take insurance, but must call [facility] to change location. Once done, to please call back to facility at [phone] documented in this encounter Plan of Treatment Upcoming Encounters Date Type Department Care Team (Late st Contact Info) Description 03/14/2025 3:00 PM EST Office Visit [facility] OPTOMETRY [address] [place], [place] [phone] Miley Osorio OD [address] [place] [address] documented as of this encounter Visit Diagnoses Not on filedocumented in this encounter Care Teams Linux Kernel Developer Relationship Specialty Start Date End Date Marybeth Reddy MD [address] [place] [address] PCP - General Family Medicine 07/20/23 documented as of this encounter
--- OUTSIDE RECORDS SUMMARY | 2025-01-16 21:48 | XMS_ITS | Encounter Summary ---
Author Organization [employer] Address [address] [facility] [address] 7t [place] [address] Care Team Providers Care Personnel Director Name Role Phone Marybeth Reddy MD Primary Care Provider [phone] Reason for Visit * Reason Comments Med Refill Encounter Details Date Type Department Care Team (Late st Contact Info) Description 10/31/2024 Refill [facility] MEDICINE [address] [place], [place] [phone] Rachelle Mina CNM 230 [place], [place] [phone] Social History Tobacco Use Types Packs/Day Years [...] t he electric, gas, oil or water [employer] threatened to shut off services in your [...] Description 03/14/2025 3:00 PM EST Office Visit [facility] OPTOMETRY [address] [place] [address] Devon, Miley, OD [address] [place] [address] documented as of this encounter Visit Diagnoses Not on filedocumented in this encounter Additional Health Concerns Assessment Noted Time PHQ-9 Depression Total Score: 3 01/18/20 24 10:03 AM EST documented as of this encounter Care Teams Personnel Director Relationship Specialty Start Date End Date Marybeth Reddy MD [address] [place] [address] PCP - General Family Medicine 07/20/23 documented as of this encounter
--- OUTSIDE RECORDS SUMMARY | 2025-01-16 21:48 | XMS_ITS | Continuity of Care Document ---
Author Organization [place] - [facility], [facility] Address [address] [place] [address] Care Team Providers Care Geodetic Engineer Name Role Phone ORI PRECIADO Primary Care Provider Assessment Encounter Date Assessment Date Assessment LastModified by Organization Details LastModified Time 12/06/2024 12/06/2024 39 year old Venezuelan speaking female presents for evaluation of left-sided [...] Details Recorded Time Tinnitus of left ear 9890339927856 Active 2024 JEFFREY SALEEM [address] [facility],[address], [place], [address], [facility] 18:02:21 Problem Notes None recorded. Procedures Surgical History Date Name Laterality Status Provider Name and Address Organization Details Recorded Time 12/06/2024 Air & Speech Audio with Tymps - 36020, 32282 & 52283 completed REYNA SEBASTIAN [address] [facility] [address], [place], [address], [facility] 12/06/2024 10:51:57 Imaging Results None recorded. [...] Updated DateTime 12/06/2024 154.94 cm 30.8 kg/m2 59347.56 g Xuan Lionadriana [place] - [facility] 12/06/2024 11:16:25 Social History None recorded. Functional Status None recorded. Mental Status None recorded. Family History Nothing Reported. Medical History No medical history recorded. Gynecological HistoryNo gynecological history recorded. Obstetrics History GPAL:G 0 P 0 0 0 0 Past Encounters Encounter ID Performer Location Encounter Start Date Encounter Closed Date Diagnosis/Indication Diagnosis SNOMED-CT Code Diagnosis ICD10 Code Diagnosis IMO Codes Diagnosis Note [id number] JEFFREY SALEEM [facility] of [address] [address] 12/06/2024 10:28:09 12/06/2024 15:42:13 Tinnitus of left ear 5571057771 106 H93.12 798247 Right Ear:Normal hearing with excellent speech discrimina tion.Type A tympanogra m.Left Ear:Normal hearing with excellent speech discrimina tion.Type A tympanogra m. Family his tory of hearing loss 491802099 Z82.2 396397 Health Concerns Section Related Observation LastModified by Organization Detai ls LastModified Time None Recorded Concern Status LastModified by Organization Details LastModified Time None Recorded Payers Encounter Date Sequence Insurance Name Policy Number Policy Gee Covered Member ID Gee Member ID Guarantor Name 12/06/2024 1 [place] [facility] Luann Simmons [id number] Luann Ramires Notes Date Note Type Note Provider Name and Address Organization Details Recorded Time 12/06/2024 text/html ROS as noted in the HPI 39 year old Venezuelan speaking female presents for evaluation of left-sided tinnitus. Patient reports onset began a year ago, described as a mild beeping sound. She states her hearing is good. Denies otalgia, otorrhea, and dizziness. No personal history of loud exposure. Father was previously diagnosed with hearing loss and tinnitus. No prior ear infections or surgeries. Jorge Aquino, [address] [facility],[address] [address] [address], [place], [address], [facility] - [facility] 12/09/2024 09:22:41 OBGyn Episode No OBEpisode recorded.
== END ==
LOC: HO.CARD 14:17
PROVIDERS: PCP Family Medicine; Visit Provider Family Medicine
DX: R00.2 Palpitations (principal); R07.9 Chest pain, unspecified
CPT/HCPCS: 93225

== ENCOUNTER → 2025-01-16 14:23 | Outpatient (BNV) | payer MEDICAID, SELFPAY | PROVIDERS: PCP Family Medicine; Visit Provider Internal Medicine Cardiovascular Disease | DX: I49.3 Ventricular premature depolarization (principal) | CPT/HCPCS: 93227 ==

== ENCOUNTER → 2025-01-28 08:15 | Outpatient (BNV) | payer MEDICAID, SELFPAY | PROVIDERS: PCP Advanced Practice Midwife; Visit Provider Internal Medicine | DX: Z12.31 Encounter for screening mammogram for malignant neoplasm of breast (principal) | CPT/HCPCS: 77063; 77067 ==

== ENCOUNTER 2025-01-28 08:17 | Outpatient (REF) | payer MEDICAID, SELFPAY ==
--- OUTSIDE RECORDS SUMMARY | 2025-01-28 08:21 | XMS_ITS | Data Portability ---
Author Organization [place] - [facility], Allergy Address [address] [address] Care Team Providers Care Gravity Prospecting Observer Name Role Phone ORI PRECIADO Primary Care Provider [phone] Assessment Encounter Date Assessment Date Assessment LastModified by Organization Details LastModified Time 12/06/2024 12/06/2024 39 year old Luxembourgish speaking female presents for evaluation of left-sided [...] Details Recorded Time Tinnitus of left ear 6289843412176 Active 2024 JEFFREY SALEEM [address] [facility], [place], [address], [facility] 18:02:21 Problem Notes None recorded. Procedures Surgical History Date Name Laterality Status Provider Name and Address Organization Details Recorded Time 12/06/2024 Air & Speech Audio with Tymps - 47587, 85551 & 42353 completed REYNA SEBASTIAN 100 [facility] [address], [place], [address], [facility] 12/06/2024 10:51:57 Imaging Results None recorded. Procedure [...] Updated DateTime 12/06/2024 154.94 cm 30.8 kg/m2 15459.56 g Xuan Cabanury [facility] 12/06/2024 11:16:25 Social History None recorded. Functional Status None recorded. Mental Status None recorded. Family History Nothing Reported. Medical History No medical history recorded. Gynecological HistoryNo gynecological history recorded. Obstetrics History GPAL:G 0 P 0 0 0 0 Past Encounters Encounter ID Performer Location Encounter Start Date Encounter Closed Date Diagnosis/Indication Diagnosis SNOMED-CT Code Diagnosis ICD10 Code Diagnosis IMO Codes Diagnosis Note [id number] JEFFREY SALEEM [facility] of [address] [address] 12/06/2024 10:28:09 12/06/2024 15:42:13 Tinnitus of left ear 3558475286 106 H93.12 812586 Right Ear:Normal hearing with excellent speech discrimina tion.Type A tympanogra m.Left Ear:Normal hearing with excellent speech discrimina tion.Type A tympanogra m. Family his tory of hearing loss 338457545 Z82.2 694848 Health Concerns Section Related Observation LastModified by Organization Detai ls LastModified Time None Recorded Concern Status LastModified by Organization Details LastModified Time None Recorded Advance Directives Directive None Recorded Payers Insurance Date Sequence Insurance Name Policy Number Policy Gee Covered Member ID Gee Member ID Guarantor Name 12/16/2024 1 [place]: [facility] Luann Simmons [id number] Luann Ramires Notes Date Note Type Note Provider Name and Address Organization Details Recorded Time 12/06/2024 text/html ROS as noted in the HPI 39 year old Luxembourgish speaking female presents for evaluation of left-sided tinnitus. Patient reports onset began a year ago, described as a mild beeping sound. She states her hearing is good. Denies otalgia, otorrhea, and dizziness. No personal history of loud exposure. Father was previously diagnosed with hearing loss and tinnitus. No prior ear infections or surgeries. Jorge Aquino, [address],[place] [address], [place], [address], [facility] - [facility] 12/09/2024 09:22:41 OBGyn Episode No OBEpisode recorded.
--- OUTSIDE RECORDS SUMMARY | 2025-01-28 08:21 | XMS_ITS | Encounter Summary ---
Author Organization [employer] Address [address] [facility] [address] [place] [address] Care Team Providers Care Manager Database Administration Name Role Phone Marybeth Reddy MD Primary Care Provider [phone] Reason for Visit * Reason Comments Med Refill Encounter Details Date Type Department Care Team (Late st Contact Info) Description 10/31/2024 Refill [facility] MEDICINE [address] [place], [place] [phone] Rachelle Mina CNM 230 [place], [place] [phone] Social History Tobacco Use Types Packs/Day Years [...] t he electric, gas, oil or water [employer] threatened to shut off services in your [...] 03/14/2025 3:00 PM EST Office Visit [facility] OPTOMETRY [address] [place] [address] Devon, Miley, OD [address] [place] [address] documented as of this encounter Visit Diagnoses Not on filedocumented in this encounter Additional Health Concerns Assessment Noted Time PHQ-9 Depression Total Score: 3 01/18/20 24 10:03 AM EST documented as of this encounter Care Teams Manager Database Administration Relationship Specialty Start Date End Date Marybeth Reddy MD [address] [place] [address] PCP - General Family Medicine 07/20/23 documented as of this encounter
--- OUTSIDE RECORDS SUMMARY | 2025-01-28 08:21 | XMS_ITS | Encounter Summary ---
Author Organization [email or web address] Address [address] [facility] 7t [place] [address] Care Team Providers Care Mill Oiler Name Role Phone Marybeth Reddy MD Primary Care Provider [phone] Reason for Visit * Reason Onset Date Comments New Patient 11/29/2022 Encounter Details Date Type Department Care Team (Late st Contact Info) Description 11/29/2022 Telephone [facility] MEDICINE [address] [place], [place] [phone] Antwan Hastings MD [address] [place], [place] [phone] New Patient Social History Tobacco Use Types [...] we do take insurance, but must call [facility] to change location. Once done, to please call back to facility at [phone] documented in this encounter Plan of Treatment Upcoming Encounters Date Type Department Care Team (Late st Contact Info) Description 03/14/2025 3:00 PM EST Office Visit [facility] OPTOMETRY [address] [place], [place] [phone] Miley Osorio OD [address] [place] [address] documented as of this encounter Visit Diagnoses Not on filedocumented in this encounter Care Teams Mill Oiler Relationship Specialty Start Date End Date Marybeth Reddy MD [address] [place] [address] PCP - General Family Medicine 07/20/23 documented as of this encounter
--- OUTSIDE RECORDS SUMMARY | 2025-01-28 08:21 | XMS_ITS | Continuity of Care Document ---
Author Organization [place] - [facility], [facility] Address [address] [place] [address] Care Team Providers Care Carpenter Ship Name Role Phone ORI PRECIADO Primary Care Provider [phone] Assessment Encounter Date Assessment Date Assessment LastModified by Organization Details LastModified Time 12/06/2024 12/06/2024 39 year old Samoan speaking female presents for evaluation of left-sided [...] Details Recorded Time Tinnitus of left ear 5071307067752 Active 2024 JEFFREY SALEEM [address] [facility],[address], [place], [address], [facility] 18:02:21 Problem Notes None recorded. Procedures Surgical History Date Name Laterality Status Provider Name and Address Organization Details Recorded Time 12/06/2024 Air & Speech Audio with Tymps - 10652, [address] & [address] completed REYNA SEBASTIAN [address] [facility] 100, [place], [address], [facility] 12/06/2024 [...] Updated DateTime 12/06/2024 154.94 cm 30.8 kg/m2 61340.56 g Xuan Lionadriana [place] - [facility] [...] ICD10 Code Diagnosis IMO Codes Diagnosis Note [id number] JEFFREY SALEEM [facility] of [address] [address] 12/06/2024 10:28:09 12/06/2024 15:42:13 Tinnitus of left ear [id number] 106 H93.12 170647 Right Ear:Normal hearing with excellent speech discrimina tion.Type A tympanogra m.Left Ear:Normal hearing with excellent speech discrimina tion.Type A tympanogra m. Family his tory of hearing loss 802799980 Z82.2 706043 Health Concerns Section Related Observation LastModified by Organization Detai ls LastModified Time None Recorded Concern Status LastModified by Organization Details LastModified Time None Recorded Payers Encounter Date Sequence Insurance Name Policy Number Policy Gee Covered Member ID Gee Member ID Guarantor Name 12/06/2024 1 [place] [facility] Luann Simmons [id number] Luann Ramires Notes Date Note Type Note Provider Name and Address Organization Details Recorded Time 12/06/2024 text/html ROS as noted in the HPI 39 year old Samoan speaking female presents for evaluation of left-sided tinnitus. Patient reports onset began a year ago, described as a mild beeping sound. She states her hearing is good. Denies otalgia, otorrhea, and dizziness. No personal history of loud exposure. Father was previously diagnosed with hearing loss and tinnitus. No prior ear infections or surgeries. Jorge Aquino, [address] [facility],[place] [address], [place], [address], [facility] - [facility] 12/09/2024 09:22:41 OBGyn Episode No OBEpisode recorded.
--- OUTSIDE RECORDS SUMMARY | 2025-01-28 08:21 | XMS_ITS | Clinical Summary ---
Author Organization [employer] Address [address] [facility] [address] [place] [address] Care Team Providers Care Stucco Applicator Name Role Phone Marybeth Reddy MD Primary Care Provider [phone] Allergies No known active allergies Medications acetaminophen [...] day for 180 doses. 30 capsule 5 01/22/2025 9:00 AM EST 5 05/14/19 26 Active estradiol (Climara) 0.1 [...] optic neuritis; MS - Upcoming appointment with [facility] Eye care - will evaluate with MRI [...] prescribed Cromolyn eye drops. - referred to [facility] 01/16/24 Tinnitus of left ear [...] 140/90 -to resume amlodipine today -request for STE[employer] BOX TENDER apt to start care -advised to monitor [...] (11/24/2022): Last Assessment & Plan: Referral to [facility]. Discussed that it will take some follow-up to be able to communicate helpfully about any disability caused by her medical conditions. Encounters Date Type Department Care Team Description 01/17/[address] [facility] MEDICINE [address] [place] [address] Marybeth Reddy MD Results 01/01/2025 Results Follow-Up [facility] MEDICINE [address] [place] [address] Marybeth Reddy MD CBC auto differential, Comprehensive Metabolic Panel, Lipid Panel with Reflex to Direct LDL, Additional followed-up results: 2 12/31/2024 2:15 PM EST Office Visit [facility] [place] [address] Marybeth Reddy MD Essential hypertension (Primary Dx); [...] changes; Optic neuritis 12/31/2024 Travel 12/30/20[address] [place] [address] Marybeth Reddy MD chartprep 12/23/2024 Patient Outreach [address] [place] [address] Marybeth Reddy MD Pre-visit Planning (SDOH screening was completed on 06/24/2024) 12/15/2024 Refill [facility] [place] [address] Marybeth Reddy MD 12/09/2024 Results Follow-Up [address] [place] [address] Arlet Mariscal CNM 21- Hydroxylase Antibody, POCT Urine 11/14/2024 11:00 AM EDT Office Visit [address] [place] [address] Arlet Mariscal CNM Primary ovarian insufficiency (Primary Dx); Breast cancer screening by mammogram 11/14/2024 Travel 11/13/2024 [address] [place] [address] Marybeth Reddy MD chartprep 11/04/[address] [place] [address] Arlet Mariscal CNM 10/31/2024 Refill [facility] [address] [place] [address] Arlet Mariscal CNM from Last 3 Months Immunizations Immunization Administration [...] 03/14/2025 3:00 PM EST Office Visit [facility] OPTOMETRY [address] [place] [address] Devon, Miley, OD [address] [place] [address] Health Maintenance Due Date Last Done Comments [...] 3:02 PM EST) Triglycerides 126 <150 mg/dL [facility] Comment:Desirable Triglyceri de: less than 150 mg/dLBorderline High Triglyceride 150-199 mg/dLHigh Triglyceride: 200-499 mg/dLVery High Triglyceride: greater than or equal to 5OO mg/dL Cholesterol 166 <200 mg/dL [facility] Comment:Desirable Cholestero l: less than 200 mg/dLBorderline High Cholesterol: 200-239 mg/dLHigh Cholesterol: greater than 239 mg/dL LDL Cholesterol Calculated 90 <100 mg/dL [facility] Comment:Desirable LDL: less than 100 mg/dLNear Optimal/Above Optimal LDL: 110- 129 mg/dLBorderline High LDL: 130-159 mg/dLHigh LDL: 160-189 mg/dLVery High LDL: greater than or equal to 190 mg/dL HDL Cholesterol 51 >40 mg/dL [facility] Comment:Desirable HDL: great er than 40 mg/dL Note: This HDL assay may give artificially low results in patients with liver disease. Blood 12/31/2024 3:02 PM EST 12/31/2024 4:08 PM EST us Marybeth Reddy MD LAB BLOOD ORDERABLES Final Resul t Performing Organization Address [facility] Co de Phone Number [facility] [address] [place] [address] [phone] * Albumin, Random Urine W/Creatinine (12/31/2024 3:02 PM EST) Creatinine, Urine 147.45 mg/dL [facility] Microalbumin Urine 20.0 mg/L [facility] Microalbum Creatinine Ratio Ur 13.5 <30 ug/mg cr [facility] Comment:Albumin/Creatinine R atio Reference Ranges: Normal: < 30 ug/mg creatinine Microalbuminuria: 30 - 300 ug/mg creatinineClinical Albuminuria: > 300 ug/mg creatinine Urine 12/31/2024 3:02 PM EST 12/31/2024 3:59 PM EST us Marybeth Reddy MD LAB URINE ORDERABLES Final Resul t Performing Organization Address [facility]/ZIP Co de Phone Number [facility] [address] [place] [address] [phone] * (ABNORMAL) CBC auto differential (12/31/2024 3:02 PM EST) White Blood Count 10.3 4.8 - 10.8 X10*3/uL [facility] Red Blood Count 5.09 4.20 - 5.50 X10*6/uL [facility] Hemoglobin 13.1 12.0 - 16.0 g/dl [facility] Hematocrit 41.6 37.0 - 47.0 % [facility] Mean Corpuscular Volume 81.7 80.0 - 98.0 fL [facility] Mean Corpuscular Hemoglobin 25.7(L) 27.0 - 33.0 pg [facility] Mean Corpuscular HGB Conc 31.5 31.0 - 35.0 g/dl [facility] Red Cell Distribution Width 13.8 11.0 - 16.0 % [facility] Platelet Count 304 160 - 400 X10*3/uL [facility] Mean Platelet Volume 11.3 9.4 - 12.3 fL [facility] Neutrophils Percent Auto 62.8 45 - 73 % [facility] Imm Gran Pct Auto 0.3 0.0 - 0.4 % [facility] Lymphocytes Percent Auto 27.3 20 - 40 % [facility] Monocytes Percent Auto 6.2 2 - 11 % [facility] Eosinophils Percent Auto 2.9 0 - 4 % [facility] Basophils Percent Auto 0.5 0 - 2 % [facility] NRBC Pct Auto 0.0 0.0 - 0.2 /100WBC [facility] Neutrophils Absolute Auto 6.5 2.0 - 8.3 x10*3/uL [facility] Imm Gran Abs Auto 0.03 0.00 - 0.03 X10*3/uL [facility] Lymphocytes Absolute Auto 2.8 1.2 - 4.9 X10*3/uL [facility] Monocytes Absolute Auto 0.6 0.1 - 1.2 X10*3/uL [facility] Eosinophils Absolute Auto 0.3 0.0 - 0.4 X10*3/uL [facility] Basophils Absolute Auto 0.1 0.0 - 0.2 X10*3/uL [facility] NRBC Abs Auto 0.000 0.0 - 0.012 X10*3/uL [facility] Blood Venous blood specimen / Unknown 12/31/2024 3:02 PM EST 12/31/2024 4:08 PM EST Marybeth Reddy MD LAB BLOOD ORDERABLES Final Resul t Performing Organization Address [facility] Co de Phone Number [facility] [address] [place] [phone] * Hemoglobin A1c (12/31/2024 3:02 PM EST) Hemoglobin A1c 5.8 <6.0 % [facility] Comment:Hemoglobin A1C Refer ence Range Adults: 4.8 - 6.0 % Non diabetic: < 6.0 % Goal: < 7.0 %Additional Action Suggested: > 8.0 %Note: Hemoglobin A1c results are invalid for patients with abnormal amounts of HbF. Blood transfusions may impact the HbA1c concentration in the patient sample. Estimated Average Glucose 120 mg/dL [facility] Comment:eAG = Estimated ave rage glucose which is %A1C expressed asaverage glucose, using the formula of the [id number] Glucose study (ADAG), Diabetes Care, Vol.31,#8,Sep. 2007 Blood Venous blood specimen / Unknown 12/31/2024 3:02 PM EST 12/31/2024 4:08 PM EST us Marybeth Reddy MD LAB BLOOD ORDERABLES Final Resul t Performing Organization Address [facility] Co de Phone Number [facility] [address] [place] [phone] * (ABNORMAL) Comprehensive Metabolic Panel (12/31/2024 3:02 PM EST) Sodium 140 135 - 145 mmol/L [facility] Potassium 3.6 3.3 - 5.1 mmol/L [facility] Chloride 109(H) 96 - 108 mmol/L [facility] Carbon Dioxide 26 22 - 29 mmol/L [facility] Anion Gap 9(L) 12 - 20 [facility] Urea Nitrogen (BUN) 12 9 - 16 mg/dL [facility] Creatinine, Serum 0.60 0.5 - 1.4 mg/dL [facility] Estimated Glomerular Filt Rate >60 [facility] Comment:Chronic Kidney Disea se: Estimated GFR < 60 mL/min/1.14v9Xmtevg Kidney Disease: Estimated GFR < 15 mL/min/1.73m2 Glucose 114 60 - 115 mg/dL [facility] Calcium 8.8 8.4 - 10.2 mg/dL [facility] Bilirubin, Total 0.1 0.0 - 1.0 mg/dL [facility] Aspartate Amino Transferase 18 5 - 31 U/L [facility] Alanine Aminotransferase 20 0 - 31 U/L [facility] Total Protein 7.9 6.5 - 8.0 g/dL [facility] Albumin Level 4.4 3.5 - 5.0 g/dL [facility] Alkaline Phosphatase 71 39 - 117 U/L [facility] Blood Venous blood specimen / Unknown 12/31/2024 3:02 PM EST 12/31/2024 4:08 PM EST Marybeth Reddy MD LAB BLOOD ORDERABLES Final Resul t [facility] [address] [place] [phone] * ECG 12 lead (12/31/2024 2:54 [...] AM EDT) 21 Hydroxylase Ab NEGATIVE NEGATIVE [facility] Comment:THIS TEST WAS PERFOR MED AT:[facility] [employer] [id number] [address] HWJORJ[place] [phone] SCHERER MD,PHD,BERTRAND Blood 11/28/2024 11:3 6 AM EDT 11/28/2024 11:36 AM EDT Arlet SOLIZ LAB BLOOD ORDERABLES Merlyn l Result [facility] [address] [place] [address] [phone] * POCT Urine (11/14/2024 11:35 AM EDT) Preg Test, Ur Negative Negative, Indeterminate, None Detected, Invalid, Specimen unsatisfactory for evaluation, Weakly Positive, 2+ QC Media Lot # [id number] Lot# Expiration Date [id number] Urine 11/14/2024 11:3 5 AM EDT Arlet Mariscal [facility] POINT OF CARE TEST ENTER/ EDIT ORDERABLES Final Result * HPV DNA, Low/High Risk (06/24/2024 10:43 AM EDT) HPV High Risk Negative Negative [facility] HPV Genotype 16 Negative Negative [facility] HPV Genotype 18 Negative Negative [facility] Comment:HPV testing performe d at (CLIA#[id number]), [address] [place] [address].Testing for HPV was performed using the Bird [...] Arlet Mariscal CNM LAB BLOOD ORDERABLES Merlyn l Result [facility] [address] [place] [phone] * Pap Smear (06/24/2024 10:43 AM EDT) Swab Cervix uteri structure / Unknown 06/24/2024 10:43 AM EDT 06/25/2024 10:51 AM EDT Narrative [facility] - 06/27/2024 10:14 AM EDT ----- ------- Name: Adwoa Zengara Age/Sex: 39/F : 1985 Unit#: [id number] Attend Dr: ARLET MARISCAL CNM Re06/24/24 Status: DEP REF Location: HO.HHCLNP Disch: ----- ------- SPEC : [id number] RECD: 06/25/24-105 STATUS: YINKA MCCANN NUM: [id number] IRVIN: 06/24/24-1043 [facility] [address]: ARLET MARISCAL CNM ENTERED: 06/25/24-1052 SP [...] CNM LAB CYTOLOGY ORDERABLES F inal Result [facility] [address] [place] [phone] * BI Mammogram Screening Tomosynthesis Bilateral (07/25/2023 1:31 PM EDT) Anatomical Region Laterality Modality Breast Bilateral Mammography 07/25/2023 1:31 PM EDT Narrative 08/24/2023 3:16 PM EDT [facility] [address] [place] [address] [place] [address] Mammography Report Signed Patient: Luann Zeng MR#: [id number] : 1985 Acct:[id number] Age/Sex: 38 / F ADM Date: 07/25/23 Loc: MADDI Attending Dr: Marybeth Reddy MD Ordering Physician: Marybeth Reddy MD Results: 1Negative Date of Service: 07/25/23 Follow Up: 1 Year From Orig ina Mammogram Procedure(s): MM tomosynthesis screening BI Accession Number(s): [id number] cc: Marybeth Reddy MD EXAMINATION: MM SCREENING [...] in OV> 08/24/23 1513 DD/ 1331 TD/TT: Sponsorship Manager: Procedure Note Donotuseinterpreter, Image - 08/24/2023 [facility] [address] [place], [place] [address] Mammography Report Signed Patient: Luann ZengMR#: [id number] : 1985Acct:[id number] Age/Sex: 38 / FADM Date: 07/25/23 Loc: MADDI Attending Dr: Marybeth Reddy MD Ordering Physician: Marybeth Reddy MDResults: 1Negative Date of Service: 07/25/23Follow Up: 1 Year From [facility] Mammogram Procedure(s): MM tomosynthesis screening BI Accession Number(s): [id number] cc: Marybeth Reddy MD EXAMINATION: MM SCREENING [...] in OV> 08/24/23 1513 DD/ 1331 TD/TT: Sponsorship Manager: Marybeth Reddy MD IMG BI PROCEDURES Final Result * Hepatitis C Antibody with Reflex to HCV, RNA, Quantitative, Real-Time PCR (07/20/2023 9:59 AM EDT) Hepatitis C Antibody Nonreactive Nonreactive [facility] Comment:Antibodies to HCV no t detected; does not exclude early acuteHCV infection. Blood Venous blood specimen / Unknown 07/20/2023 9:59 AM EDT 07/20/2023 11:49 AM EDT Marybeth Reddy MD LAB BLOOD ORDERABLES Final Resul t [facility] [address] [place] [address] [place] [phone] * HIV-1/2 Antigen and Antibodies, Fourth Generation, with Reflexes (07/20/2023 9:59 AM EDT) HIV AB/AG Nonreactive Nonreactive [facility] Comment:HIV-1 p24 Ag and/or HIV-1/HIV-2 Ab not detected.A test result that is nonreactive does not exclude thepossibility of exposure to or infection with HIV-1 and/orHIV-2. Nonreactive results in this assay for individualswith prior exposure to HIV-1 and/or HIV-2 may be due toantigen and antibody levels that are below the limit ofdetection of this assay.The [employer] HIV Ag/Ab Combo assay result andsupplemental assay results should be interpreted inconjunction with the patient's clinical presentation,history and other laboratory results. If the results areinconsistent with clinical evidence, additional testing issuggested to confirm the result. Blood Venous blood specimen / Unknown 07/20/2023 9:59 AM EDT 07/20/2023 11:49 AM EDT us Marybeth Reddy MD LAB BLOOD ORDERABLES Final Resul t [facility] [address] [place] [phone] [phone] from Last 3 Months or Most Recently Relevant to Health Maintenance Insurance [employer] C3 Care Teams Stucco Applicator Relationship Specialty Start Date End Date Marybeth Reddy MD [address] [place] [phone] PCP - General Family Medicine 07/20/23"
== END 2025-01-28 08:18 | disposition home or self-care (01) ==
LOC: HO.MAMMO 08:17
PROVIDERS: PCP Advanced Practice Midwife; Visit Provider Advanced Practice Midwife
DX: Z12.31 Encounter for screening mammogram for malignant neoplasm of breast (principal)
CPT/HCPCS: 77063; 77067